=== PATIENT | female | born 1955 | race Caucasian/White ===

== ENCOUNTER 2019-10-16 08:55 | Emergency (ER) | payer MEDICARE ==
[2019-10-16] MEDS ORDERED: Sodium Chloride 0.9% 10 ML Syringe FLUSH PRN (09:24)
[2019-10-16] MEDS ORDERED: Ondansetron 4 MG/2 ML SDV IVPUSH ONE (09:26)
[2019-10-16] MEDS ORDERED: Sodium Chloride 0.9% 1,000 ML IV SCH (09:30)
--- NOTE | 2019-10-16 09:32 | EDM.PDOC ---
ED HPI GENERAL MEDICAL PROBLEM - General Chief Complaint: Syncope Stated Complaint: SYNCOPE/VOMITING Time Seen by Provider: 10/16/19 09:13 Source of Information: Reports: Patient History Limitations: Reports: No Limitations - History of Present Illness INITIAL COMMENTS - FREE TEXT/NARRATIVE: The patient presents with syncope. She passed out last night on the stairs. She then woke up vomiting. Nausea and vomiting have been an ongoing problems for her for a few months. She is scheduled to see a urologist and GI doctor in [place] in the next few weeks. She has never passed out like this. She has had a headache for the past week. It is better today. She has no fever, chills , cough, congestion, runny nose, chest pain or shortness of breath. She does have pain to her left upper back that happened after she fell. She has no numbness or weakness. She has no abdominal pain. She has some nausea now. She has a history of COPD but no heart problems in the past. Onset: Sudden Duration: Day(s): (Last night) Location: Reports: Back Quality: Reports: Sharp Severity: Moderate Improves with: Reports: Immobilization Worsens with: Reports: Movement Context: Reports: Trauma (Fall after syncope) Associated Symptoms: Reports: Nausea/Vomiting. Denies: Chest Pain, Cough, Fever /Chills, Headaches, Shortness of Breath Left Shoulder Pain Score (Numeric/FACES): 2 - Related Data Allergies Allergy/AdvReac Type Severity Reaction Status Date / Time amoxicillin Allergy Anaphylactic Verified 10/16/19 09:12 Shock codeine Allergy Abdominal Verified 10/16/19 09:12 Pain Home Meds: Home Meds Cetirizine [ZyrTEC] 1 tab PO DAILY 10/16/19 [History] Cholecalciferol (Vitamin D3) [Vitamin D] 1,000 unit DAILY 10/16/19 [History] Lactobacillus Combo No.11 [Probiotic] 1 cap PO DAILY 10/16/19 [History] Vitamin E 3 cap PO DAILY 10/16/19 [History] Wheat Dextrin [Benefiber] 1 packet PO DAILY 10/16/19 [History] polyethylene glycoL 3350 [MiraLAX] 1 packet PO DAILY PRN 10/16/19 [History] ED ROS GENERAL - Review of Systems Review Of Systems: See Below Constitutional: Reports: No Symptoms HEENT: Reports: No Symptoms Respiratory: Reports: No Symptoms Cardiovascular: Reports: Syncope. Denies: Chest Pain Endocrine: Reports: No Symptoms GI/Abdominal: Reports: No Symptoms Musculoskeletal: Reports: Back Pain - Physical Exam Exam: See Below Exam Limited By: No Limitations General Appearance: Alert, No Apparent Distress Ears: Normal External Exam Nose: Normal Inspection Head Exam: Atraumatic, Normocephalic Neck: Normal Inspection, Supple, Non-Tender Respiratory/Chest: No Respiratory Distress, Lungs Clear, Normal Breath Sounds Cardiovascular: Regular Rate, Rhythm, No Edema, No Murmur GI/Abdominal: Soft, Non-Tender, No Organomegaly, No Mass Neuro Exam (Abbreviated): Alert, Oriented, No Motor/Sensory Deficits Course - Vital Signs Last Recorded V/S: Last Vital Signs Temp 96.8 F 10/16/19 09:01 Pulse 86 10/16/19 09:01 Resp 18 10/16/19 09:01 BP 131/89 10/16/19 09:01 Pulse Ox 98 10/16/19 09:01 - Orders/Labs/Meds Orders: Active Orders 24 hr Category Date Time Status Cardiac Monitoring [RC] . DIRECTED Care 10/16/19 09:24 Active EKG Documentation Completion [RC] STAT Care 10/16/19 09:25 Active Holter Monitor 48 Hours [RC] .PRN Care 10/16/19 11:28 Ordered Influenza Vaccine Charge [RC] .DISCHARGE Care 10/16/19 09:29 Active Peripheral IV Care [RC] . DIRECTED Care 10/16/19 09:25 Active Sodium Chloride 0.9% [Normal Saline] 1,000 ml Med 10/16/19 09:30 Active IV .BOLUS Sodium Chloride 0.9% [Saline Flush] Med 10/16/19 09:24 Active 10 ml FLUSH ASDIRECTED PRN Peripheral IV Insertion Adult [OM.PC] Stat Oth 10/16/19 09:24 Ordered Medication Orders Sodium Chloride (Normal Saline) 1,000 mls @ 1,000 mls/hr IV .BOLUS NEFTALI Last Admin: 10/16/19 09:47 Dose: 1,000 mls/hr Sodium Chloride (Saline Flush) 10 ml FLUSH ASDIRECTED PRN PRN Reason: Keep Vein Open Last Admin: 10/16/19 09:48 Dose: 10 ml Labs: Laboratory Tests 10/16/19 10/16/19 10/16/19 Range/Units 09:45 09:45 09:45 WBC 11.43 H (3.98-10.04) K/mm3 RBC 4.68 (3.98-5.22) M/mm3 Hgb 14.1 (11.2-15.7) gm/dl Hct 42.8 (34.1-44.9) % MCV 91.5 (79.4-94.8) fl MCH 30.1 (25.6-32.2) pg MCHC 32.9 (32.2-35.5) g/dl RDW Std Deviation 44.1 (36.4-46.3) fL Plt Count 343 (182-369) K/mm3 MPV 9.5 (9.4-12.3) fl Neut % (Auto) 45.0 (34.0-71.1) % Lymph % (Auto) 42.2 (19.3-51.7) % [place] % (Auto) 9.0 (4.7-12.5) % Eos % (Auto) 3.1 (0.7-5.8) Baso % (Auto) 0.4 (0.1-1.2) % Neut # (Auto) 5.13 (1.56-6.13) K/mm3 Lymph # (Auto) 4.82 H (1.18-3.74) K/mm3 [place] # (Auto) 1.03 H (0.24-0.36) K/mm3 Eos # (Auto) 0.36 (0.04-0.36) K/mm3 Baso # (Auto) 0.05 (0.01-0.08) K/mm3 D-Dimer, Quantitative 0.21 (0.19-0.50) mg/L Sodium 142 (136-145) mEq/L Potassium 4.1 (3.5-5.1) mEq/L Chloride 105 (98-107) mEq/L Carbon Dioxide 26 (21-32) mEq/L Anion Gap 15.1 H (5-15) BUN 18 (7-18) mg/dL Creatinine 0.9 (0.55-1.02) mg/dL Est Cr Clr Drug Dosing 52.24 mL/min Estimated GFR (MDRD) > 60 (>60) mL/min BUN/Creatinine Ratio 20.0 H (14-18) Glucose 95 (80-115) mg/dL Calcium 9.6 (8.5-10.1) mg/dL Total Bilirubin 0.4 (0.2-1.0) mg/dL AST 14 L (15-37) U/L ALT 24 (14-59) U/L Alkaline Phosphatase 76 (46-116) U/L Troponin I < 0.017 (0.00-0.056) ng/mL Total Protein 7.3 (6.4-8.2) g/dl Albumin 3.9 (3.4-5.0) g/dl Globulin 3.4 gm/dL Albumin/Globulin Ratio 1.2 (1-2) Meds: Medications Generic Name Dose Route Start Last Admin Trade Name Freq PRN Reason Stop Dose Admin Sodium Chloride 1,000 mls @ 1,000 mls/hr 10/16/19 09:30 10/16/19 09:47 Normal Saline IV 1,000 mls/hr .BOLUS NEFTALI Administration Sodium Chloride 10 ml 10/16/19 09:24 10/16/19 09:48 Saline Flush FLUSH 10 ml ASDIRECTED PRN Administration Keep Vein Open Discontinued Medications Generic Name Dose Route Start Last Admin Trade Name Freq PRN Reason Stop Dose Admin Influenza Virus Vaccine 1 each 10/16/19 09:29 Pharmacy To Dose - Influenza Vaccine IM 10/16/19 09:30 ONETIME ONE Influenza Virus Vaccine 60 mcg 10/16/19 10:15 10/16/19 10:50 Fluzone Quad Syringe IM 10/16/19 10:16 60 mcg .ONCE ONE Administration Ondansetron HCl 4 mg 10/16/19 09:26 10/16/19 09:47 Zofran IVPUSH 10/16/19 09:27 4 mg ONETIME ONE Administration - Re-Assessments/Exams Free Text/Narrative Re-Assessment/Exam: 10/16/19 09:31 I ordered an IV NS 1L bolus, EKG, CT of her head, zofran 4mg IV and labs. 10/16/19 11:28 Her EKG shows a NSR with no acute changes. The CT of her head shows nothing acute. Her CXR shows possible emphysematous change. Her WBC was slightly elevated at 11.43. Her D-dimer is negative. Her CMP looks good. Her troponin is negative. She feels better. I will have her wear a holter monitor for 48 hours. I will have her follow up with Avril Cardoso. Departure - Departure Time of Disposition: 11:30 Disposition: Home, Self-Care 01 Condition: Good Clinical Impression: Syncope Qualifiers: Syncope type: unspecified Qualified Code(s): R55 - Syncope and collapse Nausea and vomiting Qualifiers: Vomiting type: unspecified Vomiting Intractability: non-intractable Qualified Code(s): R11.2 - Nausea with vomiting, unspecified - Discharge Information *PRESCRIPTION DRUG MONITORING PROGRAM REVIEWED*: Not Applicable *COPY OF PRESCRIPTION DRUG MONITORING REPORT IN PATIENT ROB: Not Applicable Referrals: Avril Cardoso MD [Primary Care Provider] - 1 Week Forms: ED Department Discharge Additional Instructions: Drink plenty of fluids. Wear the Holter monitor for 48 hours. Please return if you are worse and follow up with your provider within a week. Sepsis Event Note - Evaluation Sepsis Screening Result: No Definite Risk - Focused Exam Vital Signs: Vital Signs Temp Pulse Resp BP Pulse Ox 10/16/19 09:01 96.8 F 86 18 131/89 98 Date Exam was Performed: 10/16/19 Time Exam was Performed: 11:28 - My Orders Last 24 Hours: My Active Orders 10/16/19 09:24 Cardiac Monitoring [RC] . DIRECTED Sodium Chloride 0.9% [Saline Flush] 10 ml FLUSH ASDIRECTED PRN Peripheral IV Insertion Adult [OM.PC] Stat 10/16/19 09:25 EKG Documentation Completion [RC] STAT Peripheral IV Care [RC] . DIRECTED 10/16/19 09:29 Influenza Vaccine Charge [RC] .DISCHARGE 10/16/19 09:30 Sodium Chloride 0.9% [Normal Saline] 1,000 ml IV .BOLUS 10/16/19 11:28 Holter Monitor 48 Hours [RC] .PRN - Assessment/Plan Last 24 Hours: My Active Orders 10/16/19 09:24 Cardiac Monitoring [RC] . DIRECTED Sodium Chloride 0.9% [Saline Flush] 10 ml FLUSH ASDIRECTED PRN Peripheral IV Insertion Adult [OM.PC] Stat 10/16/19 09:25 EKG Documentation Completion [RC] STAT Peripheral IV Care [RC] . DIRECTED 10/16/19 09:29 Influenza Vaccine Charge [RC] .DISCHARGE 10/16/19 09:30 Sodium Chloride 0.9% [Normal Saline] 1,000 ml IV .BOLUS 10/16/19 11:28 Holter Monitor 48 Hours [RC] .PRN
[2019-10-16] MEDS ORDERED: FLU Vacc QS2019-20(6MOS+)/PF 60 MCG/0.5 ML SYRINGE IM ONE (10:15)
--- NOTE | 2019-10-16 10:33 | CT ---
Head CT Technique: Multiple axial sections through the brain were obtained. Intravenous contrast was not utilized. Comparison: No prior intracranial imaging. Findings: Ventricles along with basal cisterns and sulci over the convexities are mildly prominent. Minimal diminished density is noted within the periventricular white matter compatible with small vessel ischemic demyelination change. No other abnormal parenchymal densities are seen. No evidence of intracranial hemorrhage. No midline shift or mass effect is seen. Mild mucosal thickening is seen within the sphenoid and ethmoid sinuses. Mastoid sinuses are clear. No acute calvarial abnormality is seen. Impression: 1. Mild sinus findings which are most likely chronic. 2. Mild senescent change as noted above. 3. No acute intracranial abnormality is appreciated. Diagnostic code #2 Study was dictated in [place] Standard Time
--- NOTE | 2019-10-16 11:04 | CR ---
Chest: PA and lateral views of the chest were obtained. Comparison: No prior chest imaging. Heart size and mediastinum are normal. Lungs are clear but slightly hyperinflated. Bony structures appear within normal limits for the patient's age. Impression: 1. Possible emphysematous change. 2. Nothing acute is otherwise seen on two-view chest x-ray. Diagnostic code #1 Study was dictated in [place] Standard Time
== END 2019-10-16 11:44 | disposition home or self-care (01) ==
LOC: JD.ED 08:55
DX: R55 Syncope and collapse (principal); R11.2 Nausea with vomiting, unspecified; J44.9 Chronic obstructive pulmonary disease, unspecified; Z88.1 Allergy status to other antibiotic agents; Z88.5 Allergy status to narcotic agent
CPT/HCPCS: 36415; 70450; 71046; 80053; 84484; 85025; 85379; 90686; 93005; 93225; 93226; 96361; 96374; 99284; G0008; J2405; J7030; 93010

== ENCOUNTER 2020-05-06 08:00 | Inpatient (IN) | payer MEDICAID, MEDICARE, OTHER ==
[~2020-05-06 08:00] MED LIST: Lactated Ringers 1,000 ML IV SCH; Lidocaine 1%/Sod Bicarbonate in NS 8.4% 1 ML Syringe IDERM PRN; Sodium Chloride 0.9% 10 ML Syringe FLUSH PRN
[2020-05-06] MEDS ORDERED: Lidocaine 1% 4 ML ONE (09:22)
[2020-05-06] MEDS ORDERED: Propofol 200 MG/20 ML SDV ONE (09:23)
[2020-05-06] MEDS ORDERED: Succinylcholine/Sod PF 100 MG/5 ML SYRINGE IV ONE (09:23)
[2020-05-06] MEDS ORDERED: Midazolam 1 MG/ML 2 ML SDV ONE (09:23)
[2020-05-06] MEDS ORDERED: Rocuronium 50 MG/5 ML Vial ONE ×2 (09:27→14:43)
[2020-05-06] MEDS ORDERED: Ertapenem 1 GM in Sodium Chloride 0.9% 50 ML IV ONE (09:30)
[2020-05-06] MEDS ORDERED: Scopolamine 1.5 MG Transdermal Patch TOP ONE (09:30)
[2020-05-06] MEDS ORDERED: fentaNYL 250 MCG/5 ML SDV ONE (10:03)
[2020-05-06] MEDS ORDERED: Morphine PF 10 MG/10 ML SDV ONE (10:03)
[2020-05-06] MEDS ORDERED: Bupivacaine 0.5% 10 ML SDV ONE (10:08)
[2020-05-06] MEDS: Albuterol/Ipratropium 3.0-0.5 MG/3 ML Neb Soln NEB PRN ×2 (10:21→17:41)
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
[2020-05-06] MEDS ORDERED: ePHEDrine Sulfate/0.9% NaCl/Pf 25 MG/5 ML SYRINGE IV ONE (11:49)
[2020-05-06] MEDS ORDERED: Phenylephrine 1% 10 MG/ML SDV ONE (11:56)
[2020-05-06] MEDS: Bupivacaine 0.5%/EPINEPHrine 1:200,000 50 ML MDV ONE ×2 (12:02→16:45)
[2020-05-06] MEDS ORDERED: Ondansetron 4 MG/2 ML SDV ONE (12:28)
[2020-05-06] MEDS ORDERED: Lactated Ringers 1,000 ML ONE ×3 (12:29→16:23)
--- NOTE | 2020-05-06 12:31 | PCM.PRNOTE ---
- Free Text/Narrative Note: Preoperative Subarachnoid block for Postoperative pain control requested by the surgeon Pre-op Dx: Diverticulitis Post-op Rx: Laparoscopic left colectomy Requesting surgeon: Dr. Alejandrina Ferrara Patient has been interviewed preoperatively, risk/benefits/alternatives discussed, questions answered. Patient received explanation of possible headache exacerbations, worsening of parasthesia of lower extremities and possible backache and soreness, verbalized understanding and agreed to proceed. Vital signs and labs reviewed. Consent signed. IV fluid bolus given. Patient is in preop room, sitting on the bed, feet supported on the stool, positioning using pillow. Time out performed at 10:32. Mask, head cover, sterile gloves on. Betadine preparation x3 and sterile drape. Local infiltration with 1% Lidocaine at L3-L4 interspace. 1 x attempt with 25G Pencan needle. CSF obtained, no blood obtained. No parest hesia encountered. Injected 2.5 mls of 0.5% PF Bupivacaine with Fentanyl 15 mcg , Duramorph 150 mcg and 100 mcg of Epinephrine given in a single bolus. Patient tolerated the procedure very well. Start of procedure: 10:32 End of procedure: 10:40 Jairo Herrera CRNA
[2020-05-06] MEDS ORDERED: EPINEPHrine 1 MG/ML SDV ONE (13:35)
[2020-05-06] MEDS ORDERED: Methylene Blue 50 MG/10 ML Ampule ONE (14:05)
[2020-05-06] MEDS ORDERED: Sodium Chloride 0.9% 50 ML SDV ONE (14:05)
[2020-05-06] MEDS ORDERED: Furosemide 20 MG/2 ML VIAL ONE (14:23)
[2020-05-06] MEDS ORDERED: Dexamethasone 4 MG/ML 5 ML MDV ONE (15:01)
[2020-05-06] MEDS ORDERED: Ondansetron 4 MG/2 ML SDV IVPUSH PRN (15:13)
[2020-05-06] MEDS ORDERED: fentaNYL 100 MCG/2 ML SDV IVPUSH PRN (15:13)
[2020-05-06] MEDS ORDERED: diphenhydrAMINE 50 MG/ML SDV IVPUSH PRN (15:13)
[2020-05-06] MEDS ORDERED: HYDROmorphone 0.5 MG/0.5 ML Syringe ONE ×2 (17:14→17:34)
[2020-05-06] MEDS ORDERED: HYDROmorphone 0.5 MG/0.5 ML Syringe IVPUSH PRN (18:01)
[2020-05-06] MEDS ORDERED: Docusate Sodium 100 MG Cap PO PRN (18:01)
--- NOTE | 2020-05-06 18:02 | PCM.POSTAN ---
POST ANESTHESIA ASSESSMENT - MENTAL STATUS Mental Status: Confused - VITAL SIGNS Vital Signs: Last Vital Signs Temp 97.0 F 05/06/20 17:39 Pulse 83 05/06/20 09:00 Resp 14 05/06/20 17:39 BP 117/75 05/06/20 17:39 Pulse Ox 97 05/06/20 17:39 - RESPIRATORY Respiratory Status: Respiratory Rate WNL, Airway Patent, O2 Saturation Stable, Supplemental Oxygen - CARDIOVASCULAR CV Status: Pulse Rate WNL, Blood Pressure Stable - GASTROINTESTINAL GI Status: No Symptoms - PAIN Pain Score: 2 - POST OP HYDRATION Hydration Status: Adequate & Stable
--- NOTE | 2020-05-06 18:45 | OR ---
DATE OF OPERATION: 05/06/2020 SURGEON: Alejandrina Ferrara MD PREOPERATIVE DIAGNOSIS: Smoldering diverticulitis. POSTOPERATIVE DIAGNOSIS: Smoldering diverticulitis. OPERATION PERFORMED: Laparoscopic left colectomy, with splenic flexure takedown and intraoperative flexible sigmoidoscopy. ANESTHESIA: General endotracheal plus local anesthetic TAP block. ESTIMATED BLOOD LOSS: 50 mL. COMPLICATIONS: None immediate. Specimen: Left colon (part of descending and all the sigmoid colon) NEED FOR ASSISTANCE: Skilled assistance of Aurea Sands CNP, was needed in this case. The family readiness support assistant helped with patient positioning, holding the instruments especially the camera during the case as well as the retractors during the case, and closure. INDICATION AND CONSENT: Ms. Castellon is a 64-year-old female who has been suffering from recurrent episodes of diverticulitis, some of which are subclinical. She was just having some diarrhea, abdominal pain in the left lower quadrant with elevated white count, and she had abstained from eating multiple foods including meats and nuts for fear that if she eats any of that, she will provoke her left- sided abdominal pain. The patient came to see me and discussed her long- standing issue. I did offer the patient laparoscopic sigmoid left colectomy to see if that would ease her symptoms. We discussed the case with the patient in detail, risks, benefits, and alternatives. The patient wanted to proceed with the procedure and informed consent was obtained. DESCRIPTION OF PROCEDURE: The patient was taken to the operating room, placed in lithotomy position. The patient was appropriately padded. Preop antibiotics were given. Graff catheter was placed. A time-out was performed. Then, the perineum and the abdomen were prepped and draped in the usual sterile fashion. Then, we began the case by making an infraumbilical incision. Abdomen was accessed with a Veress needle. The abdomen was insufflated to 15 mmHg. Then, 2 additional trocars were placed, a 12 mm in the right lower quadrant and then the 5 mm in the right upper quadrant; both were in the right side of the abdomen. Then, the patient was placed in Trendelenburg and right sided down. The small bowel was removed from the pelvis. There were adhesions of the sigmoid colon to the lateral abdominal wall and anterior abdominal wall due to prior episode of diverticulitis. We began dissection in the medial to lateral fashion. A window was made in the appropriate place just caudal to the vascular pedicle and then dissection was carried bluntly. However, we were not able to identify the ureter during this dissection. Therefore, we stopped here and did a lateral to medial dissection. Adhesions to the abdominal wall were taken down with LigaSure Impact and then the colon was mobilized laterally by taking out the white line of Toldt all the way past the Gerota fascia. Once this was done, a significant effort was spent trying to identify the ureter, we were not able to identify. We injected 50mg of methylene blue to assist us in identification of the ureter. However, still we were not able to identify the ureter. There were many structures crossing past the pelvic brim. We traced the external iliac back to the bifurcation, but still were not able to identify the ureter with confidence. I did consult with Dr. Jonathan Copeland to the OR and in discussion with him, we agree that we should proceed with the resection and staying close to the colon and leaving the rest of the mesocolon down in hopes that this will avoid injuring the ureter. At this point then, I proceeded with taking down the splenic flexure because the diverticular disease was extensive, went up to the descending colon. Therefore, the lesser sac was entered. The gastrocolic ligament was taken down and the splenic flexure was taken down in the supra mesocolic fashion. The point where tenia coli splays out was identified. The upper mesorectum was dissected here. The upper rectum was isolated and transected using Ethicon Endo-EVENS stapler with a blue tissue load. Then, the descending and sigmoid mesocolon were taken down with LigaSure Impact, staying close to the colon and avoiding injuring any structures. There was no significant bleeding or there was no obvious injury to the ureter or urologic structures. At this time, we proceeded with extrusion of the bowel. The infraumbilical incision was extended and Reggie wound protector was placed and the left colon was extruded. The sigmoid colon was scarred due to recurrent diverticulitis and lower portion of the descending colon was also involved. Therefore, a resection was made to the area that felt normal by palpation and that did not have extensive diverticula. Then, a 29 mm Ethicon EEA stapler was brought into the field. Pursestring was placed at the end of the distal stump and an anvil was placed in there and tightened properly. This was dropped back into the abdomen and the abdomen was re-insufflated. Then, the EEA end of it was inserted into the upper rectum. However, even upon maneuvering it, could not get into the end despite extensive maneuvering with bending and trying to fit it around the upper rectum. Therefore, decision was made to resect a small segment of the upper rectum, about 3 cm so that the EEA stapler could get to the staple line. This was resected with another blue load of Endo-EVENS stapler. Then, at this point, we were able to get the EEA stapler to the staple line and an end-to-end colorectal anastomosis was performed. This anastomosis was tension free and it was tested with saline immersion test using flexible sigmoidoscopy. The colorectal anastomosis and flex sigmoidoscopy were performed, Dr. Jonathan Copeland was assisting me for this portion of the case. Once this was done, the anastomosis appeared to be well. The leak test was negative and there were no other complications. The resected segment of the upper rectum was placed in the EndoCatch bag and removed through the right lower quadrant 12 mm port site. Once this was done, any fluid was suctioned from the pelvis and we proceeded with performing transabdominal transverse plane blocks. This was performed using 0.5% bupivacaine that was injected around the abdomen in the transverse abdominis plane (TAP) under direct visualization with a laparoscope. Once we were done, the abdomen was again inspected and appeared to be normal. There was no stigmata of bleeding. The anastomosis appeared to be sitting well. At this point, the abdomen was desufflated, and trocars removed. The Reggie wound retractor was removed and a closure set was brought into the field. The fascia at the infraumbilical incision was closed with 0 PDS stitches in a running fashion and the 12 mm port in the right lower quadrant was closed at the fascial level with 0 Vicryl stitches using Michael-[place]ia device. Then, skin at all sites was reapproximated with julee and sterile dressings were placed. This marked the end of the procedure. At the end of the procedure, all instruments, sharps, and sponges were accounted for and found to be correct x2. As noted above, Dr. Jonathan Copeland assisted me with creation of colorectal anastomosis and performing a leak test. MMPARAS /[id number] ASTON
[2020-05-06] MEDS: Acetaminophen 325 MG Tab PO SCH ×2 (19:35→23:45)
[2020-05-06] MEDS: Formoterol/Mometasone 200-5 MCG 8.8 GM Inhaler IH SCH (20:24)
[2020-05-06] MEDS: Ondansetron 4 MG/2 ML SDV IVPUSH PRN (20:50)
[2020-05-06] MEDS: Fluticasone Propionate Nasal Spray 16 GM Bottle NASBOTH SCH (21:24)
[2020-05-06] MEDS: oxyCODONE 5 MG Tab PO PRN (21:33)
[2020-05-07] MEDS: Ondansetron 4 MG/2 ML SDV IVPUSH PRN (03:12)
[2020-05-07] MEDS: oxyCODONE 5 MG Tab PO PRN ×3 (03:32→15:09)
[2020-05-07] MEDS ORDERED: diphenhydrAMINE 25 MG Cap PO PRN (04:30)
[2020-05-07] MEDS: Albuterol 6.7 GM Inhaler INH PRN ×3 (04:33→20:27)
[2020-05-07] MEDS: Acetaminophen 325 MG Tab PO SCH ×3 (05:57→17:01)
[2020-05-07] MEDS: Pantoprazole 40 MG Tab.CR PO SCH (06:00)
[2020-05-07] MEDS: Formoterol/Mometasone 200-5 MCG 8.8 GM Inhaler IH SCH ×2 (08:07→20:26)
--- NOTE | 2020-05-07 08:13 | PCM.PRNOTE ---
- Free Text/Narrative Note: Chief Merchandising Officer's Operative Report Date:05/06/2020 Operation: laparoscopic sigmoid colectomy with colorectal anastomosis Indication: recurrent diverticulitis Surgeon: Alejandrina Ferrara MD Assisting: Jonathan Copeland MD (no other qualified occupational therapist assistants available due to complexity of case, including firing transanal EEA stapler for anastomosis) *Please see Dr. Ferrara's operative report for complete description of the operation. After completion of the colectomy and mobilization of the colon, I was asked to come to the OR to help with creating the stapled end to end anastomosis. The anvil had been placed in the proximal colonic segment. Under laparoscopic visualization, the stapler was passed through the anus up toward the proximal staple line. There was some redundancy and difficulty safely passing the stapler to the staple line, and so an additional 3 cm was resected using the laparoscopic linear cutting stapler from the distal portion to allow the spike of the stapler to pass through anteriorly at the transversely oriented staple line. The anvil and stapler were then mated and the stapler closed. Satisfied wi th orientation, the stapler was fired. The stapler was then opened partially to permit withdrawal. There was no resistance on withdrawal. Two intact circular specimens were retrieved from the stapler. Next, the anastomosis was tested by instilling sterile saline in the pelvis, submerging the staple line. A flexible endoscope was inserted through the anus up to the staple line, which was visualized. Air was insufflated, and no evidence of leak was noted; no bubbles emanated from beneath the fluid from the staple line. The scope was then withdrawn and my involvement in the case concluded. Jonathan Copeland MD General Surgery
[2020-05-07] MEDS ORDERED: Cholecalciferol (Vitamin D3) 5,000 UNIT Tab PO SCH (09:00)
[2020-05-07] MEDS: guaiFENesin 600 MG Tab.ER PO SCH (09:10)
[2020-05-07] MEDS: Diltiazem 120 MG Cap.CD PO SCH (09:10)
[2020-05-07] MEDS: hydrOXYzine HCl 25 MG Tab PO PRN (09:10)
[2020-05-07] MEDS: Rosuvastatin 10 MG Tab PO SCH (09:10)
[2020-05-07] MEDS: Cyanocobalamin (Vitamin B12) 1,000 MCG Tab PO SCH (09:11)
[2020-05-07] MEDS: Fluticasone Propionate Nasal Spray 16 GM Bottle NASBOTH SCH ×2 (09:12→20:34)
[2020-05-07] MEDS: Enoxaparin 40 MG/0.4 ML Syringe SUBCUT SCH (09:13)
[2020-05-07] MEDS ORDERED: Magnesium Sulfate/Water 4 GM in Premix Bag 1 BAG IV ONE (11:00)
[2020-05-07] MEDS: D5 1/2 NS w/ 20 mEq/L KCl 1,000 ML IV SCH (11:20)
--- NOTE | 2020-05-07 11:41 | PCM.PN ---
- General Info Date of Service: 05/07/20 Subjective Update: Patient has itching, nausea and vomited once overnight. Pain is controlled with medications. No fevers or chills. She ambulated this AM and sat on the chair Functional Status: Reports: Pain Controlled - Review of Systems General: Reports: No Symptoms HEENT: Reports: No Symptoms Pulmonary: Reports: No Symptoms Cardiovascular: Reports: No Symptoms Gastrointestinal: Reports: Abdominal Pain Genitourinary: Reports: No Symptoms Musculoskeletal: Reports: No Symptoms Skin: Reports: No Symptoms Neurological: Reports: No Symptoms - Patient Data Vitals - Most Recent: Last Vital Signs Temp 97.5 F 05/07/20 07:33 Pulse 89 05/07/20 09:10 Resp 16 05/07/20 10:00 BP 110/84 05/07/20 09:10 Pulse Ox 97 05/07/20 09:06 Weight - Most Recent: 82.418 kg I&O - Last 24 Hours: Intake & Output 05/06/20 05/07/20 05/07/20 22:59 06:59 14:59 Intake Total 400 1774 Output Total 1700 825 Balance -1300 949 Lab Results Last 24 Hours: Laboratory Results - last 24 hr 05/06/20 05/07/20 05/07/20 Range/Units 09:24 04:32 04:32 WBC 18.59 H (3.98-10.04) K/mm3 RBC 3.79 L (3.98-5.22) M/mm3 Hgb 11.3 D (11.2-15.7) gm/dl Hct 35.0 (34.1-44.9) % MCV 92.3 (79.4-94.8) fl MCH 29.8 (25.6-32.2) pg MCHC 32.3 (32.2-35.5) g/dl RDW Std Deviation 41.6 (36.4-46.3) fL Plt Count 306 (182-369) K/mm3 MPV 9.7 (9.4-12.3) fl Neut % (Auto) 86.2 H (34.0-71.1) % Lymph % (Auto) 7.0 L (19.3-51.7) % Chaves % (Auto) 6.5 (4.7-12.5) % Eos % (Auto) 0 L (0.7-5.8) Baso % (Auto) 0.1 (0.1-1.2) % Neut # (Auto) 16.02 H (1.56-6.13) K/mm3 Lymph # (Auto) 1.31 (1.18-3.74) K/mm3 Chaves # (Auto) 1.21 H (0.24-0.36) K/mm3 Eos # (Auto) 0.00 L (0.04-0.36) K/mm3 Baso # (Auto) 0.01 (0.01-0.08) K/mm3 Manual Slide Review Abnormal smear Sodium 137 (136-145) mEq/L Potassium 3.9 (3.5-5.1) mEq/L Chloride 100 (98-107) mEq/L Carbon Dioxide 24 (21-32) mEq/L Anion Gap 16.9 H (5-15) BUN 10 (7-18) mg/dL Creatinine 1.2 H (0.55-1.02) mg/dL Est Cr Clr Drug Dosing 39.18 mL/min Estimated GFR (MDRD) 45 (>60) mL/min BUN/Creatinine Ratio 8.3 L (14-18) Glucose 138 H (80-115) mg/dL Calcium 8.7 (8.5-10.1) mg/dL Phosphorus 2.6 (2.6-4.7) mg/dL Magnesium 1.3 L (1.8-2.4) mg/dl Blood Type A POSITIVE Gel Antibody Screen Negative Med Orders - Current: Current Medications Acetaminophen (Tylenol) 650 mg PO Q6H [facility] Last Admin: 05/07/20 11:20 Dose: 650 mg Documented by: Albuterol (Proventil Hfa) 2 gm INH Q4H PRN PRN Reason: Shortness of Breath Last Admin: 05/07/20 08:07 Dose: 2 puff Documented by: Cyanocobalamin (Vitamin B12) 4,000 mcg PO DAILY [facility] Last Admin: 05/07/20 09:11 Dose: 4,000 mcg Documented by: Diltiazem HCl (Cardizem Cd) 120 mg PO DAILY [facility] Last Admin: 05/07/20 09:10 Dose: 120 mg Documented by: Diphenhydramine HCl (Benadryl) 25 mg PO Q6H PRN PRN Reason: Itching Docusate Sodium (Colace) 100 mg PO BID PRN PRN Reason: Constipation Enoxaparin Sodium (Lovenox) 40 mg SUBCUT DAILY [facility] Last Admin: 05/07/20 09:13 Dose: 40 mg Documented by: Fluticasone Propionate (Flonase) 0 gm NASBOTH BID [facility] Last Admin: 05/07/20 09:12 Dose: 1 spray Documented by: Guaifenesin (Mucinex) 600 mg PO DAILY [facility] Last Admin: 05/07/20 09:10 Dose: 600 mg Documented by: Hydromorphone HCl (Dilaudid) 1 mg IVPUSH Q3H PRN PRN Reason: Pain (severe 7-10) Hydroxyzine HCl (Atarax) 25 mg PO Q12H PRN PRN Reason: ANXIETY Last Admin: 05/07/20 09:10 Dose: 25 mg Documented by: Magnesium Sulfate 4 gm/ Premix 50 mls @ 12.5 mls/hr IV ONETIME ONE Stop: 05/07/20 14:59 Last Admin: 05/07/20 11:20 Dose: 12.5 mls/hr Documented by: Potassium Chloride/Dextrose/Sod Cl (D5 1/2 Ns W/ 20 Meq/L Kcl) 1,000 mls @ 75 mls/hr IV ASDIRECTED [facility] Last Admin: 05/07/20 11:20 Dose: 75 mls/hr Documented by: Mometasone Furoate/Formoterol Fumar (Dulera 200-5 Mcg) 2 puff IH BID [facility] Last Admin: 05/07/20 08:07 Dose: 2 puff Documented by: Ondansetron HCl (Zofran) 4 mg IVPUSH Q6H PRN PRN Reason: Nausea/Vomiting Last Admin: 05/07/20 03:12 Dose: 4 mg Documented by: Oxycodone HCl (Oxycodone) 5 mg PO Q6H PRN PRN Reason: Abdominal Pain Last Admin: 05/07/20 09:11 Dose: 5 mg Documented by: Pantoprazole Sodium (Protonix) 40 mg PO DAILY@0700 [facility] Last Admin: 05/07/20 06:00 Dose: 40 mg Documented by: Rosuvastatin Calcium (Crestor) 20 mg PO DAILY [facility] Last Admin: 05/07/20 09:10 Dose: 20 mg Documented by: Discontinued Medications Albuterol/Ipratropium (Duoneb 3.0-0.5 Mg/3 Ml) 3 ml NEB Q4HRRT PRN PRN Reason: Shortness of Breath Stop: 05/06/20 18:00 Last Admin: 05/06/20 17:41 Dose: 3 ml Documented by: Bupivacaine HCl (Sensorcaine-Mpf 0.5%) Confirm Administered Dose 10 ml .ROUTE .STK-MED ONE Stop: 05/06/20 10:09 Last Admin: 05/06/20 16:45 Dose: 7 ml Documented by: Bupivacaine HCl/Epinephrine Bitart (Marcaine 0.5%/Epinephrine 1:200,000) Confirm Administered Dose 50 ml .ROUTE .STK-MED ONE Stop: 05/06/20 09:07 Last Admin: 05/06/20 16:45 Dose: 50 ml Documented by: Cholecalciferol (Vitamin D3) 3,000 unit PO DAILY NEFTALI Dexamethasone (Dexamethasone) Confirm Administered Dose 20 mg .ROUTE .STK-MED ONE Stop: 05/06/20 15:02 Diphenhydramine HCl (Benadryl) 25 mg IVPUSH Q6H PRN PRN Reason: Pruritis Stop: 05/06/20 18:00 Last Admin: 05/06/20 18:02 Dose: 25 mg Documented by: Ephedrine Sulfate (Ephedrine 25 Mg/5 Ml Syringe) Confirm Administered Dose 25 mg IV .STK-MED ONE Stop: 05/06/20 11:50 Epinephrine HCl (Adrenalin) Confirm Administered Dose 1 mg .ROUTE .STK-MED ONE Stop: 05/06/20 13:36 Fentanyl (Sublimaze) Confirm Administered Dose 250 mcg .ROUTE .STK-MED ONE Stop: 05/06/20 10:04 Fentanyl (Sublimaze) 100 mcg IVPUSH Q5M PRN PRN Reason: Pain Stop: 05/06/20 18:00 Furosemide (Lasix) Confirm Administered Dose 20 mg .ROUTE .STK-MED ONE Stop: 05/06/20 14:24 Glycopyrrolate () Confirm Administered Dose 1 mg .ROUTE .STK-MED ONE Stop: 05/06/20 17:23 Hydromorphone HCl (Dilaudid) Confirm Administered Dose 0.5 mg .ROUTE .STK-MED ONE Stop: 05/06/20 17:15 Hydromorphone HCl (Dilaudid) Confirm Administered Dose 0.5 mg .ROUTE .STK-MED ONE Stop: 05/06/20 17:35 Hydromorphone HCl (Dilaudid) 1 mg IVPUSH Q3H PRN PRN Reason: Pain (severe 7-10) Lactated Ringer's (Ringers, Lactated) 1,000 mls @ 125 mls/hr IV ASDIRECTED NEFTALI Stop: 05/06/20 23:00 Last Admin: 05/06/20 09:30 Dose: 125 mls/hr Documented by: Ertapenem 1 gm/ Sodium (Chloride) 50 mls @ 100 mls/hr IV ONETIME ONE Stop: 05/06/20 09:59 Last Admin: 05/06/20 19:35 Dose: Not Given Documented by: Lidocaine HCl (Xylocaine-Mpf 1%) Confirm Administered Dose 4 mls @ as directed .ROUTE .STK-MED ONE Stop: 05/06/20 09:23 Lactated Ringer's (Ringers, Lactated) Confirm Administered Dose 1,000 mls @ as directed .ROUTE .STK-MED ONE Stop: 05/06/20 12:30 Lactated Ringer's (Ringers, Lactated) Confirm Administered Dose 1,000 mls @ as directed .ROUTE .STK-MED ONE Stop: 05/06/20 12:30 Dextrose/Water (Dextrose 5% In Water) Confirm Administered Dose 0 mls @ as directed .ROUTE .STK-MED ONE Stop: 05/06/20 14:08 Lactated Ringer's (Ringers, Lactated) Confirm Administered Dose 1,000 mls @ as directed .ROUTE .STK-MED ONE Stop: 05/06/20 16:24 Lidocaine/Sodium Bicarbonate (Buffered Lidocaine 1% In Ns 8.4%) 0.25 ml IDERM ONETIME PRN PRN Reason: Prior to IV Start Stop: 05/06/20 18:00 Last Admin: 05/06/20 09:29 Dose: 0.25 ml Documented by: Methylene Blue (Provayblue) Confirm Administered Dose 50 mg .ROUTE .STK-MED ONE Stop: 05/06/20 14:06 Last Admin: 05/06/20 14:11 Dose: 50 mg Documented by: Midazolam HCl (Versed 1 Mg/Ml) Confirm Administered Dose 2 mg .ROUTE .STK-MED ONE Stop: 05/06/20 09:24 Miscellaneous Medication (Phenylephrine 1 Mg/10 Ml-Ns) Confirm Administered Dose 1 mg IV .STK-MED ONE Stop: 05/06/20 10:56 Morphine Sulfate (Duramorph Pf) Confirm Administered Dose 10 mg .ROUTE .STK-MED ONE Stop: 05/06/20 10:04 Neostigmine Methylsulfate (Neostigmine Methylsulfate) Confirm Administered Dose 5 mg .ROUTE .STK-MED ONE Stop: 05/06/20 17:23 Ondansetron HCl (Zofran) Confirm Administered Dose 8 mg .ROUTE .STK-MED ONE Stop: 05/06/20 12:29 Ondansetron HCl (Zofran) 4 mg IVPUSH ONETIME PRN PRN Reason: Nausea/Vomiting Stop: 05/06/20 18:00 Phenylephrine HCl (Ryan-Synephrine) Confirm Administered Dose 10 mg .ROUTE .STK- MED ONE Stop: 05/06/20 11:57 Propofol (Diprivan 20 Ml) Confirm Administered Dose 200 mg .ROUTE .STK-MED ONE Stop: 05/06/20 09:24 Rocuronium [place] (Zemuron) Confirm Administered Dose 50 mg .ROUTE .STK-MED ONE Stop: 05/06/20 09:28 Rocuronium [place] (Zemuron) Confirm Administered Dose 50 mg .ROUTE .STK-MED ONE Stop: 05/06/20 14:44 Scopolamine (Transderm-Scop) 1.5 mg TOP ONETIME ONE Stop: 05/06/20 09:31 Last Admin: 05/06/20 09:13 Dose: 1.5 mg Documented by: Sodium Chloride (Saline Flush) 10 ml FLUSH ASDIRECTED PRN PRN Reason: Keep Vein Open Stop: 05/06/20 18:00 Sodium Chloride (Normal Saline) Confirm Administered Dose 0 ml .ROUTE .STK-MED ONE Stop: 05/06/20 14:06 - Exam Quality Assessment: Supplemental Oxygen General: Alert, Oriented, Cooperative GI/Abdominal Exam: Soft, No Abnormal Bruit, No Mass, Distended (moderately), Tender (around the incisions) Wound/Incisions: Other (dressings in lace with mild shaddowing with serosanguinous fluid.) Sepsis Event Note - Evaluation Sepsis Screening Result: No Definite Risk - Focused Exam Vital Signs: Vital Signs Temp Pulse Resp BP Pulse Ox Pulse Ox 05/07/20 10:00 16 05/07/20 09:10 89 110/84 05/07/20 09:06 89 97 05/07/20 09:04 110/84 05/07/20 09:00 20 05/07/20 08:07 97 05/07/20 08:00 20 05/07/20 07:33 97.5 F 67 20 90/57 L 98 05/07/20 07:00 16 05/07/20 06:00 18 05/07/20 05:00 16 05/07/20 04:36 95 05/07/20 04:00 12 05/07/20 03:42 97.9 F 66 12 115/75 98 05/07/20 03:00 14 05/07/20 02:00 14 05/07/20 01:00 16 05/07/20 00:00 16 05/06/20 23:37 97.3 F 88 16 113/64 100 - Problem List Review Problem List Initiated/Reviewed/Updated: No - My Orders Last 24 Hours: My Active Orders 05/06/20 Dinner Clear Liquid Diet [DIET] 05/06/20 17:38 Resuscitation Status Routine 05/06/20 18:01 Acetaminophen [TylenoL] 650 mg PO Q6H Docusate Sodium [Colace] 100 mg PO BID PRN Ondansetron [Zofran] 4 mg IVPUSH Q6H PRN oxyCODONE 5 mg PO Q6H PRN 05/06/20 18:01 Patient Status [ADT] Routine Ambulate [RC] .TID Antiembolic Devices [RC] BID Cardiac Monitoring [RC] . DIRECTED Oxygen Therapy [RC] PRN RT Incentive Spirometry [RC] Q1HWA Up ad Priscila [RC] BID Up to Chair [RC] Q4HPRN Urinary Catheter Assessment [RC] 04,10,16,22 Urinary Catheter Removal [RC] DAILY VTE/DVT Education [RC] , Vital Signs [RC] Q1HR Abdominal Binder [OM.PC] Per Unit Routine DVT/VTE Prophylaxis Reflex [OM.PC] Routine 05/06/20 19:10 hydrOXYzine HCL [Atarax] 25 mg PO Q12H PRN 05/06/20 19:15 Albuterol [Proventil HFA] 2 gm INH Q4H PRN 05/06/20 21:00 Fluticasone Propionate [Flonase] 0 gm NASBOTH BID Mometasone/Formoterol [Dulera 200-5 MCG] 2 puff IH BID 05/07/20 04:30 diphenhydrAMINE [Benadryl] 25 mg PO Q6H PRN 05/07/20 07:00 Pantoprazole [ProTONIX] 40 mg PO DAILY@0700 05/07/20 08:09 HYDROmorphone [Dilaudid] 1 mg IVPUSH Q3H PRN 05/07/20 09:00 Cyanocobalamin (Vitamin B12) [Vitamin B12] 4,000 mcg PO DAILY Diltiazem [Cardizem CD] 120 mg PO DAILY Enoxaparin [Lovenox] 40 mg SUBCUT DAILY Rosuvastatin [Crestor] 20 mg PO DAILY guaiFENesin [Mucinex] 600 mg PO DAILY 05/07/20 10:45 D5 1/2 NS w/ 20 mEq/L KCl 1,000 ml IV ASDIRECTED 05/07/20 11:00 Magnesium Sulfate/Water [Magnesium Sulfate in Water Premix] 4 gm Premix Bag 1 bag IV ONETIME 05/08/20 05:11 BASIC METABOLIC PANEL,BMP [CHEM] AM CBC WITH AUTO DIFF [HEME] AM MAGNESIUM [CHEM] AM PHOSPHORUS [CHEM] AM 05/09/20 05:11 BASIC METABOLIC PANEL,BMP [CHEM] AM CBC WITH AUTO DIFF [HEME] AM MAGNESIUM [CHEM] AM PHOSPHORUS [CHEM] AM - Assessment Assessment:: POD 1/ s/p lap left colectomy for diverticulitis. - Plan Plan:: - Dc mittal - IVF with d5.45NS with 20mEq K at 75cc/hr - Repleted Mag - Continue CLD since pt has some nausea - hydroxyzine for itching - Continue to encourage ambulation, IS We will continue to monitor progress.
--- NOTE | 2020-05-07 13:37 | PCM48HPAN ---
Post Anesthesia Note - EVALUATION WITHIN 48HRS OF ANESTHETIC Vital Signs in Normal Range: Yes Patient Participated in Evaluation: Yes Respiratory Function Stable: Yes (still on O2 NC / continuous SpO2) Airway Patent: Yes Cardiovascular Function Stable: Yes Hydration Status Stable: Yes Pain Control Satisfactory: Yes Nausea and Vomiting Control Satisfactory: Yes Mental Status Recovered: Yes Vital Signs: Last Vital Signs Temp 97.5 F 05/07/20 11:26 Pulse 70 05/07/20 11:26 Resp 20 05/07/20 11:26 BP 102/69 05/07/20 11:26 Pulse Ox 96 05/07/20 11:26 - COMMENTS/OBSERVATIONS Free Text/Narrative:: Patient is on her postoperative day 1. No anesthesia complications noted, patient hasn't been out of bed yet, but denies any back pain, headache, numbness or tingling in lower extremities. Graff catheter hasn't been discontinued yet. Patient reports pain as tolerable.
[2020-05-07] MEDS: HYDROmorphone 1 MG/ML Syringe IVPUSH PRN (20:33)
[2020-05-08] MEDS: Acetaminophen 325 MG Tab PO SCH ×5 (00:29→23:31)
[2020-05-08] MEDS: HYDROmorphone 1 MG/ML Syringe IVPUSH PRN ×2 (00:30→21:56)
[2020-05-08] MEDS: D5 1/2 NS w/ 20 mEq/L KCl 1,000 ML IV SCH ×2 (00:30→13:57)
[2020-05-08] MEDS: Pantoprazole 40 MG Tab.CR PO SCH (06:16)
[2020-05-08] MEDS: Albuterol 6.7 GM Inhaler INH PRN ×2 (08:00→21:28)
[2020-05-08] MEDS: Formoterol/Mometasone 200-5 MCG 8.8 GM Inhaler IH SCH ×2 (08:00→20:21)
[2020-05-08] MEDS: Enoxaparin 40 MG/0.4 ML Syringe SUBCUT SCH (09:53)
[2020-05-08] MEDS: Ondansetron 4 MG/2 ML SDV IVPUSH PRN ×2 (09:53→18:02)
[2020-05-08] MEDS: Diltiazem 120 MG Cap.CD PO SCH (09:54)
[2020-05-08] MEDS: hydrOXYzine HCl 25 MG Tab PO PRN ×2 (09:56→21:21)
[2020-05-08] MEDS: Rosuvastatin 10 MG Tab PO SCH (09:56)
[2020-05-08] MEDS: Cyanocobalamin (Vitamin B12) 1,000 MCG Tab PO SCH (09:56)
[2020-05-08] MEDS: oxyCODONE 5 MG Tab PO PRN (09:57)
[2020-05-08] MEDS: guaiFENesin 600 MG Tab.ER PO SCH (09:57)
[2020-05-08] MEDS: Fluticasone Propionate Nasal Spray 16 GM Bottle NASBOTH SCH ×2 (10:19→21:25)
--- NOTE | 2020-05-08 13:29 | PCM.PN ---
- General Info Date of Service: 05/08/20 Subjective Update: Patient denies nausea or vomiting. TOlerating clears, ambulated 5 times yesterday. Abdominal pain is controlled. No fevers. urinating spontaneously. Functional Status: Reports: Pain Controlled, Tolerating Diet, Ambulating, Urinating - Review of Systems General: Reports: No Symptoms HEENT: Reports: No Symptoms Pulmonary: Reports: No Symptoms Cardiovascular: Reports: No Symptoms Gastrointestinal: Reports: Abdominal Pain Genitourinary: Reports: No Symptoms Musculoskeletal: Reports: No Symptoms Skin: Reports: No Symptoms Neurological: Reports: No Symptoms - Patient Data Vitals - Most Recent: Last Vital Signs Temp 97.9 F 05/08/20 08:01 Pulse 86 05/08/20 09:54 Resp 20 05/08/20 08:01 BP 120/67 05/08/20 09:54 Pulse Ox 94 L 05/08/20 08:01 Weight - Most Recent: 82.962 kg I&O - Last 24 Hours: Intake & Output 05/07/20 05/08/20 05/08/20 22:59 06:59 14:59 Intake Total 2450 1300 860 Output Total 1750 1200 250 Balance 700 100 610 Lab Results Last 24 Hours: Laboratory Results - last 24 hr 05/08/20 05/08/20 Range/Units 04:22 04:22 WBC 26.85 H (3.98-10.04) K/mm3 RBC 3.51 L (3.98-5.22) M/mm3 Hgb 10.4 L (11.2-15.7) gm/dl Hct 32.6 L (34.1-44.9) % MCV 92.9 (79.4-94.8) fl MCH 29.6 (25.6-32.2) pg MCHC 31.9 L (32.2-35.5) g/dl RDW Std Deviation 42.0 (36.4-46.3) fL Plt Count 295 (182-369) K/mm3 MPV 9.6 (9.4-12.3) fl Neut % (Auto) 82.4 H (34.0-71.1) % Lymph % (Auto) 8.4 L (19.3-51.7) % Alfalfa % (Auto) 8.9 (4.7-12.5) % Eos % (Auto) 0 L (0.7-5.8) Baso % (Auto) 0.0 L (0.1-1.2) % Neut # (Auto) 22.12 H (1.56-6.13) K/mm3 Lymph # (Auto) 2.25 (1.18-3.74) K/mm3 Alfalfa # (Auto) 2.40 H (0.24-0.36) K/mm3 Eos # (Auto) 0.00 L (0.04-0.36) K/mm3 Baso # (Auto) 0.01 (0.01-0.08) K/mm3 Manual Slide Review Abnormal smear Sodium 137 (136-145) mEq/L Potassium 4.4 (3.5-5.1) mEq/L Chloride 101 (98-107) mEq/L Carbon Dioxide 26 (21-32) mEq/L Anion Gap 14.4 (5-15) BUN 11 (7-18) mg/dL Creatinine 0.9 (0.55-1.02) mg/dL Est Cr Clr Drug Dosing 52.24 mL/min Estimated GFR (MDRD) > 60 (>60) mL/min BUN/Creatinine Ratio 12.2 L (14-18) Glucose 123 H (80-115) mg/dL Calcium 8.7 (8.5-10.1) mg/dL Phosphorus 3.1 (2.6-4.7) mg/dL Magnesium 2.1 (1.8-2.4) mg/dl Med Orders - Current: Current Medications Acetaminophen (Tylenol) 650 mg PO Q6H [facility] Last Admin: 05/08/20 12:09 Dose: 650 mg Documented by: Albuterol (Proventil Hfa) 2 gm INH Q4H PRN PRN Reason: Shortness of Breath Last Admin: 05/08/20 08:00 Dose: 2 puff Documented by: Cyanocobalamin (Vitamin B12) 4,000 mcg PO DAILY [facility] Last Admin: 05/08/20 09:56 Dose: 4,000 mcg Documented by: Diltiazem HCl (Cardizem Cd) 120 mg PO DAILY [facility] Last Admin: 05/08/20 09:54 Dose: 120 mg Documented by: Diphenhydramine HCl (Benadryl) 25 mg PO Q6H PRN PRN Reason: Itching Docusate Sodium (Colace) 100 mg PO BID PRN PRN Reason: Constipation Enoxaparin Sodium (Lovenox) 40 mg SUBCUT DAILY [facility] Last Admin: 05/08/20 09:53 Dose: 40 mg Documented by: Fluticasone Propionate (Flonase) 0 gm NASBOTH BID [facility] Last Admin: 05/08/20 10:19 Dose: 1 spray Documented by: Guaifenesin (Mucinex) 600 mg PO DAILY [facility] Last Admin: 05/08/20 09:57 Dose: 600 mg Documented by: Hydromorphone HCl (Dilaudid) 1 mg IVPUSH Q3H PRN PRN Reason: Pain (severe 7-10) Last Admin: 05/08/20 00:30 Dose: 1 mg Documented by: Hydroxyzine HCl (Atarax) 25 mg PO Q12H PRN PRN Reason: ANXIETY Last Admin: 05/08/20 09:56 Dose: 25 mg Documented by: Potassium Chloride/Dextrose/Sod Cl (D5 1/2 Ns W/ 20 Meq/L Kcl) 1,000 mls @ 50 mls/hr IV ASDIRECTED [facility] Last Admin: 05/08/20 00:30 Dose: 75 mls/hr Documented by: Mometasone Furoate/Formoterol Fumar (Dulera 200-5 Mcg) 2 puff IH BID [facility] Last Admin: 05/08/20 08:00 Dose: 2 puff Documented by: Ondansetron HCl (Zofran) 4 mg IVPUSH Q6H PRN PRN Reason: Nausea/Vomiting Last Admin: 05/08/20 09:53 Dose: 4 mg Documented by: Oxycodone HCl (Oxycodone) 5 mg PO Q6H PRN PRN Reason: Abdominal Pain Last Admin: 05/08/20 09:57 Dose: 5 mg Documented by: Pantoprazole Sodium (Protonix) 40 mg PO DAILY@0700 [facility] Last Admin: 05/08/20 06:16 Dose: 40 mg Documented by: Rosuvastatin Calcium (Crestor) 20 mg PO DAILY [facility] Last Admin: 05/08/20 09:56 Dose: 20 mg Documented by: Discontinued Medications Albuterol/Ipratropium (Duoneb 3.0-0.5 Mg/3 Ml) 3 ml NEB Q4HRRT PRN PRN Reason: Shortness of Breath Stop: 05/06/20 18:00 Last Admin: 05/06/20 17:41 Dose: 3 ml Documented by: Bupivacaine HCl (Sensorcaine-Mpf 0.5%) Confirm Administered Dose 10 ml .ROUTE .STK-MED ONE Stop: 05/06/20 10:09 Last Admin: 05/06/20 16:45 Dose: 7 ml Documented by: Bupivacaine HCl/Epinephrine Bitart (Marcaine 0.5%/Epinephrine 1:200,000) Confirm Administered Dose 50 ml .ROUTE .STK-MED ONE Stop: 05/06/20 09:07 Last Admin: 05/06/20 16:45 Dose: 50 ml Documented by: Cholecalciferol (Vitamin D3) 3,000 unit PO DAILY [facility] Dexamethasone (Dexamethasone) Confirm Administered Dose 20 mg .ROUTE .STK-MED ONE Stop: 05/06/20 15:02 Diphenhydramine HCl (Benadryl) 25 mg IVPUSH Q6H PRN PRN Reason: Pruritis Stop: 05/06/20 18:00 Last Admin: 05/06/20 18:02 Dose: 25 mg Documented by: Ephedrine Sulfate (Ephedrine 25 Mg/5 Ml Syringe) Confirm Administered Dose 25 mg IV .STK-MED ONE Stop: 05/06/20 11:50 Epinephrine HCl (Adrenalin) Confirm Administered Dose 1 mg .ROUTE .STK-MED ONE Stop: 05/06/20 13:36 Fentanyl (Sublimaze) Confirm Administered Dose 250 mcg .ROUTE .STK-MED ONE Stop: 05/06/20 10:04 Fentanyl (Sublimaze) 100 mcg IVPUSH Q5M PRN PRN Reason: Pain Stop: 05/06/20 18:00 Furosemide (Lasix) Confirm Administered Dose 20 mg .ROUTE .STK-MED ONE Stop: 05/06/20 14:24 Glycopyrrolate () Confirm Administered Dose 1 mg .ROUTE .STK-MED ONE Stop: 05/06/20 17:23 Hydromorphone HCl (Dilaudid) Confirm Administered Dose 0.5 mg .ROUTE .STK-MED ONE Stop: 05/06/20 17:15 Hydromorphone HCl (Dilaudid) Confirm Administered Dose 0.5 mg .ROUTE .STK-MED ONE Stop: 05/06/20 17:35 Hydromorphone HCl (Dilaudid) 1 mg IVPUSH Q3H PRN PRN Reason: Pain (severe 7-10) Lactated Ringer's (Ringers, Lactated) 1,000 mls @ 125 mls/hr IV ASDIRECTED [facility] Stop: 05/06/20 23:00 Last Admin: 05/06/20 09:30 Dose: 125 mls/hr Documented by: Ertapenem 1 gm/ Sodium (Chloride) 50 mls @ 100 mls/hr IV ONETIME ONE Stop: 05/06/20 09:59 Last Admin: 05/06/20 19:35 Dose: Not Given Documented by: Lidocaine HCl (Xylocaine-Mpf 1%) Confirm Administered Dose 4 mls @ as directed .ROUTE .STK-MED ONE Stop: 05/06/20 09:23 Lactated Ringer's (Ringers, Lactated) Confirm Administered Dose 1,000 mls @ as directed .ROUTE .STK-MED ONE Stop: 05/06/20 12:30 Lactated Ringer's (Ringers, Lactated) Confirm Administered Dose 1,000 mls @ as directed .ROUTE .STK-MED ONE Stop: 05/06/20 12:30 Dextrose/Water (Dextrose 5% In Water) Confirm Administered Dose 0 mls @ as directed .ROUTE .STK-MED ONE Stop: 05/06/20 14:08 Lactated Ringer's (Ringers, Lactated) Confirm Administered Dose 1,000 mls @ as directed .ROUTE .STK-MED ONE Stop: 05/06/20 16:24 Magnesium Sulfate 4 gm/ Premix 50 mls @ 12.5 mls/hr IV ONETIME ONE Stop: 05/07/20 14:59 Last Admin: 05/07/20 11:20 Dose: 12.5 mls/hr Documented by: Lidocaine/Sodium Bicarbonate (Buffered Lidocaine 1% In Ns 8.4%) 0.25 ml IDERM ONETIME PRN PRN Reason: Prior to IV Start Stop: 05/06/20 18:00 Last Admin: 05/06/20 09:29 Dose: 0.25 ml Documented by: Methylene Blue (Provayblue) Confirm Administered Dose 50 mg .ROUTE .STK-MED ONE Stop: 05/06/20 14:06 Last Admin: 05/06/20 14:11 Dose: 50 mg Documented by: Midazolam HCl (Versed 1 Mg/Ml) Confirm Administered Dose 2 mg .ROUTE .STK-MED ONE Stop: 05/06/20 09:24 Miscellaneous Medication (Phenylephrine 1 Mg/10 Ml-Ns) Confirm Administered Dose 1 mg IV .STK-MED ONE Stop: 05/06/20 10:56 Morphine Sulfate (Duramorph Pf) Confirm Administered Dose 10 mg .ROUTE .STK-MED ONE Stop: 05/06/20 10:04 Neostigmine Methylsulfate (Neostigmine Methylsulfate) Confirm Administered Dose 5 mg .ROUTE .STK-MED ONE Stop: 05/06/20 17:23 Ondansetron HCl (Zofran) Confirm Administered Dose 8 mg .ROUTE .STK-MED ONE Stop: 05/06/20 12:29 Ondansetron HCl (Zofran) 4 mg IVPUSH ONETIME PRN PRN Reason: Nausea/Vomiting Stop: 05/06/20 18:00 Phenylephrine HCl (Ryan-Synephrine) Confirm Administered Dose 10 mg .ROUTE .STK- MED ONE Stop: 05/06/20 11:57 Propofol (Diprivan 20 Ml) Confirm Administered Dose 200 mg .ROUTE .STK-MED ONE Stop: 05/06/20 09:24 Rocuronium [employer] (Zemuron) Confirm Administered Dose 50 mg .ROUTE .STK-MED ONE Stop: 05/06/20 09:28 Rocuronium [employer] (Zemuron) Confirm Administered Dose 50 mg .ROUTE .ST-MED ONE Stop: 05/06/20 14:44 Scopolamine (Transderm-Scop) 1.5 mg TOP ONETIME ONE Stop: 05/06/20 09:31 Last Admin: 05/06/20 09:13 Dose: 1.5 mg Documented by: Sodium Chloride (Saline Flush) 10 ml FLUSH ASDIRECTED PRN PRN Reason: Keep Vein Open Stop: 05/06/20 18:00 Sodium Chloride (Normal Saline) Confirm Administered Dose 0 ml .ROUTE .STK-MED ONE Stop: 05/06/20 14:06 - Exam General: Alert, Oriented, Cooperative Lungs: Normal Respiratory Effort Cardiovascular: Regular Rate, Regular Rhythm GI/Abdominal Exam: Soft, No Organomegaly, Distended (slightly), Tender (around incisions) Sepsis Event Note - Evaluation Sepsis Screening Result: No Definite Risk - Focused Exam Vital Signs: Vital Signs Temp Pulse Resp BP Pulse Ox Pulse Ox 05/08/20 09:54 86 120/67 05/08/20 08:01 97.9 F 61 20 99/67 94 L 05/08/20 08:00 94 L 05/08/20 03:45 98.2 F 81 16 101/47 L 92 L - Problem List Review Problem List Initiated/Reviewed/Updated: No - My Orders Last 24 Hours: My Active Orders 05/09/20 05:11 BASIC METABOLIC PANEL,BMP [CHEM] AM CBC WITH AUTO DIFF [HEME] AM MAGNESIUM [CHEM] AM PHOSPHORUS [CHEM] AM - Assessment Assessment:: POD 2 s/p lap left colectomy for diverticulitis. - Plan Plan:: - IVF with d5.45NS with 20mEq K at 50cc/hr - Continue CLD since pt has no bowel function and WBC is up - hydroxyzine for itching - Continue to encourage ambulation, IS - CBC daily We will continue to monitor progress.
[2020-05-09] MEDS: D5 1/2 NS w/ 20 mEq/L KCl 1,000 ML IV SCH (03:45)
[2020-05-09] MEDS: Acetaminophen 325 MG Tab PO SCH ×3 (05:59→19:05)
[2020-05-09] MEDS: Albuterol 6.7 GM Inhaler INH PRN (07:26)
[2020-05-09] MEDS: Formoterol/Mometasone 200-5 MCG 8.8 GM Inhaler IH SCH ×3 (07:27→20:16)
--- NOTE | 2020-05-09 08:16 | PCM.PN ---
- General Info Date of Service: 05/09/20 Subjective Update: Patient is tolerating clears, passed flatus, feels tired today but no fevers or chills. Vitals stable Functional Status: Reports: Pain Controlled, Tolerating Diet (clears), Ambulating, Urinating Pain Score: 3 - Review of Systems General: Reports: Fatigue HEENT: Reports: No Symptoms Pulmonary: Reports: No Symptoms Cardiovascular: Reports: No Symptoms Gastrointestinal: Reports: Abdominal Pain (ariund incisions and LLQ) Genitourinary: Reports: No Symptoms Musculoskeletal: Reports: No Symptoms Skin: Reports: No Symptoms Neurological: Reports: No Symptoms Psychiatric: Reports: No Symptoms - Patient Data Vitals - Most Recent: Last Vital Signs Temp 98.2 F 05/09/20 04:03 Pulse 56 L 05/09/20 04:03 Resp 16 05/09/20 04:03 BP 126/88 05/09/20 04:03 Pulse Ox 95 05/09/20 07:27 Weight - Most Recent: 82.554 kg I&O - Last 24 Hours: Intake & Output 05/08/20 05/09/20 05/09/20 22:59 06:59 14:59 Intake Total 1820 600 Output Total 500 300 Balance 1320 300 Lab Results Last 24 Hours: Laboratory Results - last 24 hr 05/09/20 05/09/20 Range/Units 04:13 04:13 WBC 16.56 H (3.98-10.04) K/mm3 RBC 3.35 L (3.98-5.22) M/mm3 Hgb 9.9 L (11.2-15.7) gm/dl Hct 31.7 L (34.1-44.9) % MCV 94.6 (79.4-94.8) fl MCH 29.6 (25.6-32.2) pg MCHC 31.2 L (32.2-35.5) g/dl RDW Std Deviation 43.0 (36.4-46.3) fL Plt Count 279 (182-369) K/mm3 MPV 10.2 (9.4-12.3) fl Neut % (Auto) 71.7 H (34.0-71.1) % Lymph % (Auto) 19.8 (19.3-51.7) % Ida % (Auto) 8.2 (4.7-12.5) % Eos % (Auto) 0 L (0.7-5.8) Baso % (Auto) 0.1 (0.1-1.2) % Neut # (Auto) 11.88 H (1.56-6.13) K/mm3 Lymph # (Auto) 3.28 (1.18-3.74) K/mm3 Ida # (Auto) 1.35 H (0.24-0.36) K/mm3 Eos # (Auto) 0.00 L (0.04-0.36) K/mm3 Baso # (Auto) 0.01 (0.01-0.08) K/mm3 Sodium 141 (136-145) mEq/L Potassium 3.8 (3.5-5.1) mEq/L Chloride 105 (98-107) mEq/L Carbon Dioxide 26 (21-32) mEq/L Anion Gap 13.8 (5-15) BUN 6 L (7-18) mg/dL Creatinine 0.9 (0.55-1.02) mg/dL Est Cr Clr Drug Dosing 52.24 mL/min Estimated GFR (MDRD) > 60 (>60) mL/min BUN/Creatinine Ratio 6.7 L (14-18) Glucose 103 (80-115) mg/dL Calcium 8.6 (8.5-10.1) mg/dL Phosphorus 3.2 (2.6-4.7) mg/dL Magnesium 1.9 (1.8-2.4) mg/dl Med Orders - Current: Current Medications Acetaminophen (Tylenol) 650 mg PO Q6H [facility] Last Admin: 05/09/20 05:59 Dose: 650 mg Documented by: Albuterol (Proventil Hfa) 2 gm INH Q4H PRN PRN Reason: Shortness of Breath Last Admin: 05/09/20 07:26 Dose: 2 puff Documented by: Cyanocobalamin (Vitamin B12) 4,000 mcg PO DAILY [facility] Last Admin: 05/08/20 09:56 Dose: 4,000 mcg Documented by: Diltiazem HCl (Cardizem Cd) 120 mg PO DAILY [facility] Last Admin: 05/08/20 09:54 Dose: 120 mg Documented by: Diphenhydramine HCl (Benadryl) 25 mg PO Q6H PRN PRN Reason: Itching Docusate Sodium (Colace) 100 mg PO BID PRN PRN Reason: Constipation Enoxaparin Sodium (Lovenox) 40 mg SUBCUT DAILY [facility] Last Admin: 05/08/20 09:53 Dose: 40 mg Documented by: Fluticasone Propionate (Flonase) 0 gm NASBOTH BID [facility] Last Admin: 05/08/20 21:25 Dose: 2 spray Documented by: Guaifenesin (Mucinex) 600 mg PO DAILY [facility] Last Admin: 05/08/20 09:57 Dose: 600 mg Documented by: Hydromorphone HCl (Dilaudid) 1 mg IVPUSH Q3H PRN PRN Reason: Pain (severe 7-10) Last Admin: 05/08/20 21:56 Dose: 1 mg Documented by: Hydroxyzine HCl (Atarax) 25 mg PO Q12H PRN PRN Reason: ANXIETY Last Admin: 05/08/20 21:21 Dose: 25 mg Documented by: Mometasone Furoate/Formoterol Fumar (Dulera 200-5 Mcg) 2 puff IH BID [facility] Last Admin: 05/09/20 07:27 Dose: 2 puff Documented by: Ondansetron HCl (Zofran) 4 mg IVPUSH Q6H PRN PRN Reason: Nausea/Vomiting Last Admin: 05/08/20 18:02 Dose: 4 mg Documented by: Oxycodone HCl (Oxycodone) 5 mg PO Q6H PRN PRN Reason: Abdominal Pain Last Admin: 05/08/20 09:57 Dose: 5 mg Documented by: Pantoprazole Sodium (Protonix) 40 mg PO DAILY@0700 [facility] Last Admin: 05/08/20 06:16 Dose: 40 mg Documented by: Rosuvastatin Calcium (Crestor) 20 mg PO DAILY [facility] Last Admin: 05/08/20 09:56 Dose: 20 mg Documented by: Discontinued Medications Albuterol/Ipratropium (Duoneb 3.0-0.5 Mg/3 Ml) 3 ml NEB Q4HRRT PRN PRN Reason: Shortness of Breath Stop: 05/06/20 18:00 Last Admin: 05/06/20 17:41 Dose: 3 ml Documented by: Bupivacaine HCl (Sensorcaine-Mpf 0.5%) Confirm Administered Dose 10 ml .ROUTE .STK-MED ONE Stop: 05/06/20 10:09 Last Admin: 05/06/20 16:45 Dose: 7 ml Documented by: Bupivacaine HCl/Epinephrine Bitart (Marcaine 0.5%/Epinephrine 1:200,000) Confirm Administered Dose 50 ml .ROUTE .STK-MED ONE Stop: 05/06/20 09:07 Last Admin: 05/06/20 16:45 Dose: 50 ml Documented by: Cholecalciferol (Vitamin D3) 3,000 unit PO DAILY [facility] Dexamethasone (Dexamethasone) Confirm Administered Dose 20 mg .ROUTE .STK-MED ONE Stop: 05/06/20 15:02 Diphenhydramine HCl (Benadryl) 25 mg IVPUSH Q6H PRN PRN Reason: Pruritis Stop: 05/06/20 18:00 Last Admin: 05/06/20 18:02 Dose: 25 mg Documented by: Ephedrine Sulfate (Ephedrine 25 Mg/5 Ml Syringe) Confirm Administered Dose 25 mg IV .STK-MED ONE Stop: 05/06/20 11:50 Epinephrine HCl (Adrenalin) Confirm Administered Dose 1 mg .ROUTE .STK-MED ONE Stop: 05/06/20 13:36 Fentanyl (Sublimaze) Confirm Administered Dose 250 mcg .ROUTE .STK-MED ONE Stop: 05/06/20 10:04 Fentanyl (Sublimaze) 100 mcg IVPUSH Q5M PRN PRN Reason: Pain Stop: 05/06/20 18:00 Furosemide (Lasix) Confirm Administered Dose 20 mg .ROUTE .STK-MED ONE Stop: 05/06/20 14:24 Glycopyrrolate () Confirm Administered Dose 1 mg .ROUTE .STK-MED ONE Stop: 05/06/20 17:23 Hydromorphone HCl (Dilaudid) Confirm Administered Dose 0.5 mg .ROUTE .STK-MED ONE Stop: 05/06/20 17:15 Hydromorphone HCl (Dilaudid) Confirm Administered Dose 0.5 mg .ROUTE .STK-MED ONE Stop: 05/06/20 17:35 Hydromorphone HCl (Dilaudid) 1 mg IVPUSH Q3H PRN PRN Reason: Pain (severe 7-10) Lactated Ringer's (Ringers, Lactated) 1,000 mls @ 125 mls/hr IV ASDIRECTED [facility] Stop: 05/06/20 23:00 Last Admin: 05/06/20 09:30 Dose: 125 mls/hr Documented by: Ertapenem 1 gm/ Sodium (Chloride) 50 mls @ 100 mls/hr IV ONETIME ONE Stop: 05/06/20 09:59 Last Admin: 05/06/20 19:35 Dose: Not Given Documented by: Lidocaine HCl (Xylocaine-Mpf 1%) Confirm Administered Dose 4 mls @ as directed .ROUTE .STK-MED ONE Stop: 05/06/20 09:23 Lactated Ringer's (Ringers, Lactated) Confirm Administered Dose 1,000 mls @ as directed .ROUTE .STK-MED ONE Stop: 05/06/20 12:30 Lactated Ringer's (Ringers, Lactated) Confirm Administered Dose 1,000 mls @ as directed .ROUTE .STK-MED ONE Stop: 05/06/20 12:30 Dextrose/Water (Dextrose 5% In Water) Confirm Administered Dose 0 mls @ as directed .ROUTE .STK-MED ONE Stop: 05/06/20 14:08 Lactated Ringer's (Ringers, Lactated) Confirm Administered Dose 1,000 mls @ as directed .ROUTE .STK-MED ONE Stop: 05/06/20 16:24 Magnesium Sulfate 4 gm/ Premix 50 mls @ 12.5 mls/hr IV ONETIME ONE Stop: 05/07/20 14:59 Last Admin: 05/07/20 11:20 Dose: 12.5 mls/hr Documented by: Potassium Chloride/Dextrose/Sod Cl (D5 1/2 Ns W/ 20 Meq/L Kcl) 1,000 mls @ 50 mls/hr IV ASDIRECTED [facility] Last Admin: 05/09/20 03:45 Dose: 75 mls/hr Documented by: Lidocaine/Sodium Bicarbonate (Buffered Lidocaine 1% In Ns 8.4%) 0.25 ml IDERM ONETIME PRN PRN Reason: Prior to IV Start Stop: 05/06/20 18:00 Last Admin: 05/06/20 09:29 Dose: 0.25 ml Documented by: Methylene Blue (Provayblue) Confirm Administered Dose 50 mg .ROUTE .STK-MED ONE Stop: 05/06/20 14:06 Last Admin: 05/06/20 14:11 Dose: 50 mg Documented by: Midazolam HCl (Versed 1 Mg/Ml) Confirm Administered Dose 2 mg .ROUTE .STK-MED ONE Stop: 05/06/20 09:24 Miscellaneous Medication (Phenylephrine 1 Mg/10 Ml-Ns) Confirm Administered Dose 1 mg IV .STK-MED ONE Stop: 05/06/20 10:56 Morphine Sulfate (Duramorph Pf) Confirm Administered Dose 10 mg .ROUTE .STK-MED ONE Stop: 05/06/20 10:04 Neostigmine Methylsulfate (Neostigmine Methylsulfate) Confirm Administered Dose 5 mg .ROUTE .STK-MED ONE Stop: 05/06/20 17:23 Ondansetron HCl (Zofran) Confirm Administered Dose 8 mg .ROUTE .STK-MED ONE Stop: 05/06/20 12:29 Ondansetron HCl (Zofran) 4 mg IVPUSH ONETIME PRN PRN Reason: Nausea/Vomiting Stop: 05/06/20 18:00 Phenylephrine HCl (Ryan-Synephrine) Confirm Administered Dose 10 mg .ROUTE .STK- MED ONE Stop: 05/06/20 11:57 Propofol (Diprivan 20 Ml) Confirm Administered Dose 200 mg .ROUTE .[facility]-MED ONE Stop: 05/06/20 09:24 Rocuronium [place] (Zemuron) Confirm Administered Dose 50 mg .ROUTE .STK-MED ONE Stop: 05/06/20 09:28 Rocuronium [place] (Zemuron) Confirm Administered Dose 50 mg .ROUTE .[facility]-MED ONE Stop: 05/06/20 14:44 Scopolamine (Transderm-Scop) 1.5 mg TOP ONETIME ONE Stop: 05/06/20 09:31 Last Admin: 05/06/20 09:13 Dose: 1.5 mg Documented by: Sodium Chloride (Saline Flush) 10 ml FLUSH ASDIRECTED PRN PRN Reason: Keep Vein Open Stop: 05/06/20 18:00 Sodium Chloride (Normal Saline) Confirm Administered Dose 0 ml .ROUTE .STK-MED ONE Stop: 05/06/20 14:06 - Exam General: Alert, Oriented, Cooperative Lungs: Clear to Auscultation, Normal Respiratory Effort Cardiovascular: Regular Rate, Regular Rhythm, No Murmurs GI/Abdominal Exam: Soft, No Organomegaly, No Abnormal Bruit, Distended (slig htly), Tender (around the incisions) Skin: Warm, Dry, Intact Wound/Incisions: Healing Well, Dressing Dry and Intact, No Drainage Sepsis Event Note - Evaluation Sepsis Screening Result: No Definite Risk - Focused Exam Vital Signs: Vital Signs Temp Pulse Resp BP Pulse Ox Pulse Ox 05/09/20 07:27 95 05/09/20 04:03 98.2 F 56 L 16 126/88 92 L 05/08/20 23:22 98.2 F 68 15 99/73 92 L - Problem List Review Problem List Initiated/Reviewed/Updated: No - My Orders Last 24 Hours: My Active Orders 05/09/20 Lunch Full Liquid Diet [DIET] - Assessment Assessment:: POD 3 s/p lap left colectomy for diverticulitis. - Plan Plan:: - Hep lock IVF - Advance diet to FLD, if tolerates it for breakfast and lunch, we may advance to regular for dinner - hydroxyzine for itching - Continue to encourage ambulation, IS - CBC tomorrow - Can shower today. Let water run over the incisions and tap dry, do nit scrub - Place dry dressing over the incision before putting abd binder/clothing on. Will plan for tentative discharge tomorrow if clinically well.
[2020-05-09] MEDS: Enoxaparin 40 MG/0.4 ML Syringe SUBCUT SCH (09:18)
[2020-05-09] MEDS: Cyanocobalamin (Vitamin B12) 1,000 MCG Tab PO SCH (09:19)
[2020-05-09] MEDS: Diltiazem 120 MG Cap.CD PO SCH (09:19)
[2020-05-09] MEDS: oxyCODONE 5 MG Tab PO PRN (09:20)
[2020-05-09] MEDS: Pantoprazole 40 MG Tab.CR PO SCH (09:20)
[2020-05-09] MEDS: guaiFENesin 600 MG Tab.ER PO SCH (09:20)
[2020-05-09] MEDS: Rosuvastatin 10 MG Tab PO SCH (09:20)
[2020-05-09] MEDS: Fluticasone Propionate Nasal Spray 16 GM Bottle NASBOTH SCH ×2 (09:28→20:12)
[2020-05-10] MEDS: Acetaminophen 325 MG Tab PO SCH ×3 (00:56→11:24)
[2020-05-10] MEDS: HYDROmorphone 1 MG/ML Syringe IVPUSH PRN (03:52)
[2020-05-10] MEDS: Pantoprazole 40 MG Tab.CR PO SCH (06:01)
[2020-05-10] MEDS: Albuterol 6.7 GM Inhaler INH PRN (07:59)
[2020-05-10] MEDS: Formoterol/Mometasone 200-5 MCG 8.8 GM Inhaler IH SCH (08:00)
[2020-05-10] MEDS: guaiFENesin 600 MG Tab.ER PO SCH (09:34)
[2020-05-10] MEDS: Cyanocobalamin (Vitamin B12) 1,000 MCG Tab PO SCH (09:34)
[2020-05-10] MEDS: Rosuvastatin 10 MG Tab PO SCH (09:34)
[2020-05-10] MEDS: Diltiazem 120 MG Cap.CD PO SCH (09:34)
[2020-05-10] MEDS: Enoxaparin 40 MG/0.4 ML Syringe SUBCUT SCH (09:35)
[2020-05-10] MEDS: Fluticasone Propionate Nasal Spray 16 GM Bottle NASBOTH SCH (10:34)
--- NOTE | 2020-05-10 11:53 | PCM.PN ---
- General Info Date of Service: 05/10/20 Admission Dx/Problem (Free Text): Diverticulitis Subjective Update: DOing well. No BM today, Tolerating diet, no fevers of chills. Functional Status: Reports: Pain Controlled, Tolerating Diet, Ambulating, Urinating - Review of Systems General: Reports: No Symptoms HEENT: Reports: No Symptoms Pulmonary: Reports: No Symptoms Cardiovascular: Reports: No Symptoms Gastrointestinal: Reports: Abdominal Pain Genitourinary: Reports: No Symptoms Musculoskeletal: Reports: No Symptoms Skin: Reports: No Symptoms Neurological: Reports: No Symptoms - Patient Data Vitals - Most Recent: Last Vital Signs Temp 97.9 F 05/10/20 08:23 Pulse 65 05/10/20 09:34 Resp 18 05/10/20 08:23 BP 118/87 05/10/20 09:34 Pulse Ox 96 05/10/20 08:23 Weight - Most Recent: 82.327 kg I&O - Last 24 Hours: Intake & Output 05/09/20 05/10/20 05/10/20 22:59 06:59 14:59 Intake Total 940 300 Output Total 750 Balance 190 300 Lab Results Last 24 Hours: Laboratory Results - last 24 hr 05/10/20 Range/Units 05:07 WBC 15.12 H (3.98-10.04) K/mm3 RBC 3.85 L (3.98-5.22) M/mm3 Hgb 11.4 D (11.2-15.7) gm/dl Hct 36.2 (34.1-44.9) % MCV 94.0 (79.4-94.8) fl MCH 29.6 (25.6-32.2) pg MCHC 31.5 L (32.2-35.5) g/dl RDW Std Deviation 42.8 (36.4-46.3) fL Plt Count 316 (182-369) K/mm3 MPV 9.9 (9.4-12.3) fl Neut % (Auto) 61.0 (34.0-71.1) % Lymph % (Auto) 29.2 (19.3-51.7) % [place] % (Auto) 8.9 (4.7-12.5) % Eos % (Auto) 0.5 L (0.7-5.8) Baso % (Auto) 0.2 (0.1-1.2) % Neut # (Auto) 9.23 H (1.56-6.13) K/mm3 Lymph # (Auto) 4.41 H (1.18-3.74) K/mm3 [place] # (Auto) 1.35 H (0.24-0.36) K/mm3 Eos # (Auto) 0.07 (0.04-0.36) K/mm3 Baso # (Auto) 0.03 (0.01-0.08) K/mm3 Med Orders - Current: Current Medications Acetaminophen (Tylenol) 650 mg PO Q6H [facility] Last Admin: 05/10/20 11:24 Dose: 650 mg Documented by: Albuterol (Proventil Hfa) 2 gm INH Q4H PRN PRN Reason: Shortness of Breath Last Admin: 05/10/20 07:59 Dose: 2 puff Documented by: Cyanocobalamin (Vitamin B12) 4,000 mcg PO DAILY [facility] Last Admin: 05/10/20 09:34 Dose: 4,000 mcg Documented by: Diltiazem HCl (Cardizem Cd) 120 mg PO DAILY [facility] Last Admin: 05/10/20 09:34 Dose: 120 mg Documented by: Diphenhydramine HCl (Benadryl) 25 mg PO Q6H PRN PRN Reason: Itching Docusate Sodium (Colace) 100 mg PO BID PRN PRN Reason: Constipation Enoxaparin Sodium (Lovenox) 40 mg SUBCUT DAILY [facility] Last Admin: 05/10/20 09:35 Dose: 40 mg Documented by: Fluticasone Propionate (Flonase) 0 gm NASBOTH BID [facility] Last Admin: 05/10/20 10:34 Dose: 1 spray Documented by: Guaifenesin (Mucinex) 600 mg PO DAILY [facility] Last Admin: 05/10/20 09:34 Dose: 600 mg Documented by: Hydromorphone HCl (Dilaudid) 1 mg IVPUSH Q3H PRN PRN Reason: Pain (severe 7-10) Last Admin: 05/10/20 03:52 Dose: 1 mg Documented by: Hydroxyzine HCl (Atarax) 25 mg PO Q12H PRN PRN Reason: ANXIETY Last Admin: 05/08/20 21:21 Dose: 25 mg Documented by: Mometasone Furoate/Formoterol Fumar (Dulera 200-5 Mcg) 2 puff IH BID [facility] Last Admin: 05/10/20 08:00 Dose: 2 puff Documented by: Ondansetron HCl (Zofran) 4 mg IVPUSH Q6H PRN PRN Reason: Nausea/Vomiting Last Admin: 05/08/20 18:02 Dose: 4 mg Documented by: Oxycodone HCl (Oxycodone) 5 mg PO Q6H PRN PRN Reason: Abdominal Pain Last Admin: 05/09/20 09:20 Dose: 5 mg Documented by: Pantoprazole Sodium (Protonix) 40 mg PO DAILY@0700 [facility] Last Admin: 05/10/20 06:01 Dose: 40 mg Documented by: Rosuvastatin Calcium (Crestor) 20 mg PO DAILY [facility] Last Admin: 05/10/20 09:34 Dose: 20 mg Documented by: Discontinued Medications Albuterol/Ipratropium (Duoneb 3.0-0.5 Mg/3 Ml) 3 ml NEB Q4HRRT PRN PRN Reason: Shortness of Breath Stop: 05/06/20 18:00 Last Admin: 05/06/20 17:41 Dose: 3 ml Documented by: Bupivacaine HCl (Sensorcaine-Mpf 0.5%) Confirm Administered Dose 10 ml .ROUTE .STK-MED ONE Stop: 05/06/20 10:09 Last Admin: 05/06/20 16:45 Dose: 7 ml Documented by: Bupivacaine HCl/Epinephrine Bitart (Marcaine 0.5%/Epinephrine 1:200,000) Confirm Administered Dose 50 ml .ROUTE .STK-MED ONE Stop: 05/06/20 09:07 Last Admin: 05/06/20 16:45 Dose: 50 ml Documented by: Cholecalciferol (Vitamin D3) 3,000 unit PO DAILY [facility] Dexamethasone (Dexamethasone) Confirm Administered Dose 20 mg .ROUTE .STK-MED ONE Stop: 05/06/20 15:02 Diphenhydramine HCl (Benadryl) 25 mg IVPUSH Q6H PRN PRN Reason: Pruritis Stop: 05/06/20 18:00 Last Admin: 05/06/20 18:02 Dose: 25 mg Documented by: Ephedrine Sulfate (Ephedrine 25 Mg/5 Ml Syringe) Confirm Administered Dose 25 mg IV .STK-MED ONE Stop: 05/06/20 11:50 Epinephrine HCl (Adrenalin) Confirm Administered Dose 1 mg .ROUTE .STK-MED ONE Stop: 05/06/20 13:36 Fentanyl (Sublimaze) Confirm Administered Dose 250 mcg .ROUTE .STK-MED ONE Stop: 05/06/20 10:04 Fentanyl (Sublimaze) 100 mcg IVPUSH Q5M PRN PRN Reason: Pain Stop: 05/06/20 18:00 Furosemide (Lasix) Confirm Administered Dose 20 mg .ROUTE .STK-MED ONE Stop: 05/06/20 14:24 Glycopyrrolate () Confirm Administered Dose 1 mg .ROUTE .STK-MED ONE Stop: 05/06/20 17:23 Hydromorphone HCl (Dilaudid) Confirm Administered Dose 0.5 mg .ROUTE .STK-MED ONE Stop: 05/06/20 17:15 Hydromorphone HCl (Dilaudid) Confirm Administered Dose 0.5 mg .ROUTE .STK-MED ONE Stop: 05/06/20 17:35 Hydromorphone HCl (Dilaudid) 1 mg IVPUSH Q3H PRN PRN Reason: Pain (severe 7-10) Lactated Ringer's (Ringers, Lactated) 1,000 mls @ 125 mls/hr IV ASDIRECTED NEFTALI Stop: 05/06/20 23:00 Last Admin: 05/06/20 09:30 Dose: 125 mls/hr Documented by: Ertapenem 1 gm/ Sodium (Chloride) 50 mls @ 100 mls/hr IV ONETIME ONE Stop: 05/06/20 09:59 Last Admin: 05/06/20 19:35 Dose: Not Given Documented by: Lidocaine HCl (Xylocaine-Mpf 1%) Confirm Administered Dose 4 mls @ as directed .ROUTE .STK-MED ONE Stop: 05/06/20 09:23 Lactated Ringer's (Ringers, Lactated) Confirm Administered Dose 1,000 mls @ as directed .ROUTE .STK-MED ONE Stop: 05/06/20 12:30 Lactated Ringer's (Ringers, Lactated) Confirm Administered Dose 1,000 mls @ as directed .ROUTE .STK-MED ONE Stop: 05/06/20 12:30 Dextrose/Water (Dextrose 5% In Water) Confirm Administered Dose 0 mls @ as directed .ROUTE .STK-MED ONE Stop: 05/06/20 14:08 Lactated Ringer's (Ringers, Lactated) Confirm Administered Dose 1,000 mls @ as directed .ROUTE .STK-MED ONE Stop: 05/06/20 16:24 Magnesium Sulfate 4 gm/ Premix 50 mls @ 12.5 mls/hr IV ONETIME ONE Stop: 05/07/20 14:59 Last Admin: 05/07/20 11:20 Dose: 12.5 mls/hr Documented by: Potassium Chloride/Dextrose/Sod Cl (D5 1/2 Ns W/ 20 Meq/L Kcl) 1,000 mls @ 50 mls/hr IV ASDIRECTED [facility] Last Admin: 05/09/20 03:45 Dose: 75 mls/hr Documented by: Lidocaine/Sodium Bicarbonate (Buffered Lidocaine 1% In Ns 8.4%) 0.25 ml IDERM ONETIME PRN PRN Reason: Prior to IV Start Stop: 05/06/20 18:00 Last Admin: 05/06/20 09:29 Dose: 0.25 ml Documented by: Methylene Blue (Provayblue) Confirm Administered Dose 50 mg .ROUTE .STK-MED ONE Stop: 05/06/20 14:06 Last Admin: 05/06/20 14:11 Dose: 50 mg Documented by: Midazolam HCl (Versed 1 Mg/Ml) Confirm Administered Dose 2 mg .ROUTE .STK-MED ONE Stop: 05/06/20 09:24 Miscellaneous Medication (Phenylephrine 1 Mg/10 Ml-Ns) Confirm Administered Dose 1 mg IV .STK-MED ONE Stop: 05/06/20 10:56 Morphine Sulfate (Duramorph Pf) Confirm Administered Dose 10 mg .ROUTE .STK-MED ONE Stop: 05/06/20 10:04 Neostigmine Methylsulfate (Neostigmine Methylsulfate) Confirm Administered Dose 5 mg .ROUTE .STK-MED ONE Stop: 05/06/20 17:23 Ondansetron HCl (Zofran) Confirm Administered Dose 8 mg .ROUTE .STK-MED ONE Stop: 05/06/20 12:29 Ondansetron HCl (Zofran) 4 mg IVPUSH ONETIME PRN PRN Reason: Nausea/Vomiting Stop: 05/06/20 18:00 Phenylephrine HCl ([place]-Synephrine) Confirm Administered Dose 10 mg .ROUTE .STK- MED ONE Stop: 05/06/20 11:57 Propofol (Diprivan 20 Ml) Confirm Administered Dose 200 mg .ROUTE .STK-MED ONE Stop: 05/06/20 09:24 Rocuronium [place] (Zemuron) Confirm Administered Dose 50 mg .ROUTE .STK-MED ONE Stop: 05/06/20 09:28 Rocuronium [place] (Zemuron) Confirm Administered Dose 50 mg .ROUTE .STK-MED ONE Stop: 05/06/20 14:44 Scopolamine (Transderm-Scop) 1.5 mg TOP ONETIME ONE Stop: 05/06/20 09:31 Last Admin: 05/06/20 09:13 Dose: 1.5 mg Documented by: Sodium Chloride (Saline Flush) 10 ml FLUSH ASDIRECTED PRN PRN Reason: Keep Vein Open Stop: 05/06/20 18:00 Sodium Chloride (Normal Saline) Confirm Administered Dose 0 ml .ROUTE .STK-MED ONE Stop: 05/06/20 14:06 - Exam General: Alert, Oriented, Cooperative Lungs: Normal Respiratory Effort Cardiovascular: Regular Rate, Regular Rhythm GI/Abdominal Exam: Soft, No Organomegaly, No Distention, No Abnormal Bruit, Tender (around incisions) Sepsis Event Note - Evaluation Sepsis Screening Result: No Definite Risk - Focused Exam Vital Signs: Vital Signs Temp Pulse Resp BP Pulse Ox Pulse Ox 05/10/20 09:34 65 118/87 05/10/20 08:23 97.9 F 65 18 118/87 96 05/10/20 08:00 94 L 05/10/20 03:45 97.7 F 67 18 119/60 94 L 05/10/20 01:19 98.4 F 59 L 16 113/84 95 - Problem List Review Problem List Initiated/Reviewed/Updated: No - My Orders Last 24 Hours: My Active Orders 05/09/20 Lunch Regular Diet [DIET] 05/10/20 11:50 Ready for Discharge [RC] PER UNIT ROUTINE - Assessment Assessment:: POD 4 s/p lap left colectomy for diverticulitis. - Plan Plan:: - Tolerating diet - ambulating -pain controlled with oral medications Patient will be discharged to home today. FOllow up with me in 2 weeks.
--- NOTE | 2020-05-10 11:56 | PCM.DCSUM1 ---
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 She did well post operatively. DIet was gradually advanced. She brett;l follow up with me in clinic in 2 weeks. Diagnosis: Stroke: No - Discharge Data Discharge Date: 05/10/20 Discharge Disposition: Home, Self-Care 01 Condition: Good - Referral to Home Health Primary Care Physician: PCP None - Patient Instructions Diet: Regular Diet as Tolerated Activity: No Lifting Over 20 Pounds (for 6 weeks) Driving: Do Not Drive (until off of opioid pain medications completely) Showering/Bathing: May Shower Wound/Incision Care: Keep Operative Site/Wound Site Clean and Dry Notify Provider of: Fever, Increased Pain, Swelling and Redness, Drainage Other/Special Instructions: - Take Tylenol or Ibuprofen every 6-8 hours for pain. If pain becomes worse, take the prescribed opioid pain medications. - If you have no stool for 2 consecutive days or stools are hard to pass, take stool softeners such as Dulcolax available over the counter. - Discharge Plan *PRESCRIPTION DRUG MONITORING PROGRAM REVIEWED*: No *COPY OF PRESCRIPTION DRUG MONITORING REPORT IN PATIENT ROB: No Prescriptions/Med Rec: oxyCODONE 5 mg PO Q6H PRN 3 Days #12 tablet PRN Reason: Abdominal Pain Home Medications: Home Meds Cholecalciferol (Vitamin D3) [Vitamin D] 3,000 unit PO DAILY 10/16/19 [History] Lactobacillus Combo No.11 [Probiotic] 1 cap PO DAILY 10/16/19 [History] Vitamin E 3 cap PO BID 10/16/19 [History] Wheat Dextrin [Benefiber] 1 packet PO DAILY 10/16/19 [History] Albuterol [Ventolin HFA] 2 puff INH Q4H PRN 05/03/20 [History] Budesonide/Formoterol Fumarate [Symbicort 160-4.5 Mcg Inhaler] 2 puff INH BID 05/03/20 [History] Cyanocobalamin (Vitamin B-12) [Vitamin B-12] 1,000 mcg PO DAILY 05/03/20 [History] Esomeprazole [NexIUM] 40 mg PO QAM 05/03/20 [History] Famotidine [Pepcid] 20 mg PO BEDTIME 05/03/20 [History] Fluticasone Propionate [Flonase] 1 spray NASBOTH BID 05/03/20 [History] Multivitamin 1 tab PO DAILY 05/03/20 [History] Rosuvastatin Calcium 20 mg PO DAILY 05/03/20 [History] dilTIAZem HCL [Cardizem] 120 mg PO DAILY 05/03/20 [History] guaiFENesin [Mucinex] 600 mg PO DAILY PRN 05/03/20 [History] hydrOXYzine pamoate [Vistaril] 25 mg PO Q12H PRN 05/03/20 [History] ondansetron HCL [Zofran] 4 mg PO Q6H PRN 05/03/20 [History] Hydrocodone/Acetaminophen [Exchange 5-325 Tablet] 1 tab PO ASDIRECTED 05/06/20 [History] PEG 400/Hypromellose/Glycerin [Artificial Tears Drops] 1 drop EYEBOTH BID 05/06/20 [History] Acetaminophen [Tylenol] 650 mg PO Q6H tablet 05/10/20 [Rx] oxyCODONE 5 mg PO Q6H PRN 3 Days #12 tablet 05/10/20 [Rx] Oxygen Therapy Mode: Room Air Patient Handouts: COVID-19 Frequently Asked Questions, COVID-19: How to Protect Yourself and Others - CDC, Laparoscopic Colectomy, Laparoscopic Colectomy, Care After Referrals: Alejandrina Ferrara MD [Physician] - 05/24/20 10:30 am (Please follow up with Dr. Ferrara on May 24 at 10:30.) - Discharge Summary/Plan Comment DC Time >30 min.: Yes (discharge teaching) - General Info Date of Service: 05/10/20 Admission Dx/Problem (Free Text: Diverticulitis Subjective Update: DOing well. tolerating diet, ambulating, has bowel function Functional Status: Reports: Pain Controlled, Tolerating Diet, Ambulating, Urinating - Review of Systems General: Reports: No Symptoms HEENT: Reports: No Symptoms Pulmonary: Reports: No Symptoms Cardiovascular: Reports: No Symptoms Gastrointestinal: Reports: Abdominal Pain Genitourinary: Reports: No Symptoms Musculoskeletal: Reports: No Symptoms Skin: Reports: No Symptoms Neurological: Reports: No Symptoms Psychiatric: Reports: No Symptoms - Patient Data Vitals - Most Recent: Last Vital Signs Temp 97.9 F 05/10/20 08:23 Pulse 65 05/10/20 09:34 Resp 18 05/10/20 08:23 BP 118/87 05/10/20 09:34 Pulse Ox 96 05/10/20 08:23 Weight - Most Recent: 82.327 kg I&O - Last 24 hours: Intake & Output 05/09/20 05/10/20 05/10/20 22:59 06:59 14:59 Intake Total 940 300 Output Total 750 Balance 190 300 Lab Results - Last 24 hrs: Laboratory Results - last 24 hr 05/10/20 Range/Units 05:07 WBC 15.12 H (3.98-10.04) K/mm3 RBC 3.85 L (3.98-5.22) M/mm3 Hgb 11.4 D (11.2-15.7) gm/dl Hct 36.2 (34.1-44.9) % MCV 94.0 (79.4-94.8) fl MCH 29.6 (25.6-32.2) pg MCHC 31.5 L (32.2-35.5) g/dl RDW Std Deviation 42.8 (36.4-46.3) fL Plt Count 316 (182-369) K/mm3 MPV 9.9 (9.4-12.3) fl Neut % (Auto) 61.0 (34.0-71.1) % Lymph % (Auto) 29.2 (19.3-51.7) % [place] % (Auto) 8.9 (4.7-12.5) % Eos % (Auto) 0.5 L (0.7-5.8) Baso % (Auto) 0.2 (0.1-1.2) % Neut # (Auto) 9.23 H (1.56-6.13) K/mm3 Lymph # (Auto) 4.41 H (1.18-3.74) K/mm3 [place] # (Auto) 1.35 H (0.24-0.36) K/mm3 Eos # (Auto) 0.07 (0.04-0.36) K/mm3 Baso # (Auto) 0.03 (0.01-0.08) K/mm3 Med Orders - Current: Current Medications Acetaminophen (Tylenol) 650 mg PO Q6H [facility] Last Admin: 05/10/20 11:24 Dose: 650 mg Documented by: Albuterol (Proventil Hfa) 2 gm INH Q4H PRN PRN Reason: Shortness of Breath Last Admin: 05/10/20 07:59 Dose: 2 puff Documented by: Cyanocobalamin (Vitamin B12) 4,000 mcg PO DAILY [facility] Last Admin: 05/10/20 09:34 Dose: 4,000 mcg Documented by: Diltiazem HCl (Cardizem Cd) 120 mg PO DAILY [facility] Last Admin: 05/10/20 09:34 Dose: 120 mg Documented by: Diphenhydramine HCl (Benadryl) 25 mg PO Q6H PRN PRN Reason: Itching Docusate Sodium (Colace) 100 mg PO BID PRN PRN Reason: Constipation Enoxaparin Sodium (Lovenox) 40 mg SUBCUT DAILY [facility] Last Admin: 05/10/20 09:35 Dose: 40 mg Documented by: Fluticasone Propionate (Flonase) 0 gm NASBOTH BID [facility] Last Admin: 05/10/20 10:34 Dose: 1 spray Documented by: Guaifenesin (Mucinex) 600 mg PO DAILY [facility] Last Admin: 05/10/20 09:34 Dose: 600 mg Documented by: Hydromorphone HCl (Dilaudid) 1 mg IVPUSH Q3H PRN PRN Reason: Pain (severe 7-10) Last Admin: 05/10/20 03:52 Dose: 1 mg Documented by: Hydroxyzine HCl (Atarax) 25 mg PO Q12H PRN PRN Reason: ANXIETY Last Admin: 05/08/20 21:21 Dose: 25 mg Documented by: Mometasone Furoate/Formoterol Fumar (Dulera 200-5 Mcg) 2 puff IH BID [facility] Last Admin: 05/10/20 08:00 Dose: 2 puff Documented by: Ondansetron HCl (Zofran) 4 mg IVPUSH Q6H PRN PRN Reason: Nausea/Vomiting Last Admin: 05/08/20 18:02 Dose: 4 mg Documented by: Oxycodone HCl (Oxycodone) 5 mg PO Q6H PRN PRN Reason: Abdominal Pain Last Admin: 05/09/20 09:20 Dose: 5 mg Documented by: Pantoprazole Sodium (Protonix) 40 mg PO DAILY@0700 [facility] Last Admin: 05/10/20 06:01 Dose: 40 mg Documented by: Rosuvastatin Calcium (Crestor) 20 mg PO DAILY [facility] Last Admin: 05/10/20 09:34 Dose: 20 mg Documented by: Discontinued Medications Albuterol/Ipratropium (Duoneb 3.0-0.5 Mg/3 Ml) 3 ml NEB Q4HRRT PRN PRN Reason: Shortness of Breath Stop: 05/06/20 18:00 Last Admin: 05/06/20 17:41 Dose: 3 ml Documented by: Bupivacaine HCl (Sensorcaine-Mpf 0.5%) Confirm Administered Dose 10 ml .ROUTE .STK-MED ONE Stop: 05/06/20 10:09 Last Admin: 05/06/20 16:45 Dose: 7 ml Documented by: Bupivacaine HCl/Epinephrine Bitart (Marcaine 0.5%/Epinephrine 1:200,000) Confirm Administered Dose 50 ml .ROUTE .STK-MED ONE Stop: 05/06/20 09:07 Last Admin: 05/06/20 16:45 Dose: 50 ml Documented by: Cholecalciferol (Vitamin D3) 3,000 unit PO DAILY [facility] Dexamethasone (Dexamethasone) Confirm Administered Dose 20 mg .ROUTE .STK-MED ONE Stop: 05/06/20 15:02 Diphenhydramine HCl (Benadryl) 25 mg IVPUSH Q6H PRN PRN Reason: Pruritis Stop: 05/06/20 18:00 Last Admin: 05/06/20 18:02 Dose: 25 mg Documented by: Ephedrine Sulfate (Ephedrine 25 Mg/5 Ml Syringe) Confirm Administered Dose 25 mg IV .STK-MED ONE Stop: 05/06/20 11:50 Epinephrine HCl (Adrenalin) Confirm Administered Dose 1 mg .ROUTE .STK-MED ONE Stop: 05/06/20 13:36 Fentanyl (Sublimaze) Confirm Administered Dose 250 mcg .ROUTE .STK-MED ONE Stop: 05/06/20 10:04 Fentanyl (Sublimaze) 100 mcg IVPUSH Q5M PRN PRN Reason: Pain Stop: 05/06/20 18:00 Furosemide (Lasix) Confirm Administered Dose 20 mg .ROUTE .STK-MED ONE Stop: 05/06/20 14:24 Glycopyrrolate () Confirm Administered Dose 1 mg .ROUTE .STK-MED ONE Stop: 05/06/20 17:23 Hydromorphone HCl (Dilaudid) Confirm Administered Dose 0.5 mg .ROUTE .STK-MED ONE Stop: 05/06/20 17:15 Hydromorphone HCl (Dilaudid) Confirm Administered Dose 0.5 mg .ROUTE .STK-MED ON E Stop: 05/06/20 17:35 Hydromorphone HCl (Dilaudid) 1 mg IVPUSH Q3H PRN PRN Reason: Pain (severe 7-10) Lactated Ringer's (Ringers, Lactated) 1,000 mls @ 125 mls/hr IV ASDIRECTED [facility] Stop: 05/06/20 23:00 Last Admin: 05/06/20 09:30 Dose: 125 mls/hr Documented by: Ertapenem 1 gm/ Sodium (Chloride) 50 mls @ 100 mls/hr IV ONETIME ONE Stop: 05/06/20 09:59 Last Admin: 05/06/20 19:35 Dose: Not Given Documented by: Lidocaine HCl (Xylocaine-Mpf 1%) Confirm Administered Dose 4 mls @ as directed .ROUTE .STK-MED ONE Stop: 05/06/20 09:23 Lactated Ringer's (Ringers, Lactated) Confirm Administered Dose 1,000 mls @ as directed .ROUTE .STK-MED ONE Stop: 05/06/20 12:30 Lactated Ringer's (Ringers, Lactated) Confirm Administered Dose 1,000 mls @ as directed .ROUTE .STK-MED ONE Stop: 05/06/20 12:30 Dextrose/Water (Dextrose 5% In Water) Confirm Administered Dose 0 mls @ as directed .ROUTE .STK-MED ONE Stop: 05/06/20 14:08 Lactated Ringer's (Ringers, Lactated) Confirm Administered Dose 1,000 mls @ as directed .ROUTE .STK-MED ONE Stop: 05/06/20 16:24 Magnesium Sulfate 4 gm/ Premix 50 mls @ 12.5 mls/hr IV ONETIME ONE Stop: 05/07/20 14:59 Last Admin: 05/07/20 11:20 Dose: 12.5 mls/hr Documented by: Potassium Chloride/Dextrose/Sod Cl (D5 1/2 Ns W/ 20 Meq/L Kcl) 1,000 mls @ 50 mls/hr IV ASDIRECTED [facility] Last Admin: 05/09/20 03:45 Dose: 75 mls/hr Documented by: Lidocaine/Sodium Bicarbonate (Buffered Lidocaine 1% In Ns 8.4%) 0.25 ml IDERM ONETIME PRN PRN Reason: Prior to IV Start Stop: 05/06/20 18:00 Last Admin: 05/06/20 09:29 Dose: 0.25 ml Documented by: Methylene Blue (Provayblue) Confirm Administered Dose 50 mg .ROUTE .STK-MED ONE Stop: 05/06/20 14:06 Last Admin: 05/06/20 14:11 Dose: 50 mg Documented by: Midazolam HCl (Versed 1 Mg/Ml) Confirm Administered Dose 2 mg .ROUTE .STK-MED ONE Stop: 05/06/20 09:24 Miscellaneous Medication (Phenylephrine 1 Mg/10 Ml-Ns) Confirm Administered Dose 1 mg IV .STK-MED ONE Stop: 05/06/20 10:56 Morphine Sulfate (Duramorph Pf) Confirm Administered Dose 10 mg .ROUTE .STK-MED ONE Stop: 05/06/20 10:04 Neostigmine Methylsulfate (Neostigmine Methylsulfate) Confirm Administered Dose 5 mg .ROUTE .STK-MED ONE Stop: 05/06/20 17:23 Ondansetron HCl (Zofran) Confirm Administered Dose 8 mg .ROUTE .STK-MED ONE Stop: 05/06/20 12:29 Ondansetron HCl (Zofran) 4 mg IVPUSH ONETIME PRN PRN Reason: Nausea/Vomiting Stop: 05/06/20 18:00 Phenylephrine HCl (Ryan-Synephrine) Confirm Administered Dose 10 mg .ROUTE .STK- MED ONE Stop: 05/06/20 11:57 Propofol (Diprivan 20 Ml) Confirm Administered Dose 200 mg .ROUTE .STK-MED ONE Stop: 05/06/20 09:24 Rocuronium [place] (Zemuron) Confirm Administered Dose 50 mg .ROUTE .STK-MED ONE Stop: 05/06/20 09:28 Rocuronium [place] (Zemuron) Confirm Administered Dose 50 mg .ROUTE .STK-MED ONE Stop: 05/06/20 14:44 Scopolamine (Transderm-Scop) 1.5 mg TOP ONETIME ONE Stop: 05/06/20 09:31 Last Admin: 05/06/20 09:13 Dose: 1.5 mg Documented by: Sodium Chloride (Saline Flush) 10 ml FLUSH ASDIRECTED PRN PRN Reason: Keep Vein Open Stop: 05/06/20 18:00 Sodium Chloride (Normal Saline) Confirm Administered Dose 0 ml .ROUTE .STK-MED ONE Stop: 05/06/20 14:06 - Exam General: Reports: Alert, Oriented, Cooperative Lungs: Reports: Clear to Auscultation Cardiovascular: Reports: Regular Rate, Regular Rhythm GI/Abdominal Exam: Soft, No Organomegaly, No Distention, No Abnormal Bruit, No Mass, Tender (around incisions) Wound/Incisions: Reports: Healing Well, Dressing Dry and Intact, No Drainage
== END 2020-05-10 13:00 | disposition home or self-care (01) | DRG 331 ==
LOC: JD.MS 08:53 → JD.OB 05-08 11:21 → JD.MS 05-09 20:00
PROVIDERS: ADMIT Surgery; ATTEND Surgery
PROC: 0DBN0ZZ Excision of Sigmoid Colon, Open Approach (ICD-10-PCS; principal; 2020-05-06)
PROC: 0DBL0ZZ Excision of Transverse Colon, Open Approach (ICD-10-PCS; 2020-05-06)
DX: K57.32 Diverticulitis of large intestine without perforation or abscess without bleeding (principal); J44.9 Chronic obstructive pulmonary disease, unspecified; F41.9 Anxiety disorder, unspecified; M19.90 Unspecified osteoarthritis, unspecified site; K76.0 Fatty (change of) liver, not elsewhere classified; K21.9 Gastro-esophageal reflux disease without esophagitis; E78.00 Pure hypercholesterolemia, unspecified; I10 Essential (primary) hypertension; H53.2 Diplopia; Z88.8 Allergy status to other drugs, medicaments and biological substances; Z90.710 Acquired absence of both cervix and uterus; Z98.41 Cataract extraction status, right eye; Z98.42 Cataract extraction status, left eye; Z79.899 Other long term (current) drug therapy; Z85.41 Personal history of malignant neoplasm of cervix uteri; Z87.442 Personal history of urinary calculi; Z98.890 Other specified postprocedural states; Z88.5 Allergy status to narcotic agent; Z87.891 Personal history of nicotine dependence; Z20.828 Contact with and (suspected) exposure to other viral communicable diseases
CPT/HCPCS: 00790; 36415; 62320; 80048; 83735; 84100; 85025; 86850; 86900; 86901; 88307; 94640; 94760; 94761; 94762; A9270-GY; J0171; J0330; J1100; J1170; J1200; J1335; J1650; J2001; J2250; J2270; J2370; J2405; J2704; J2710; J3010; J3475; J3480; J3490; J7050; J7060; J7120; J7620-GY; U0002

== ENCOUNTER 2023-10-08 02:16 | Emergency (ER) | payer MEDICAID, MEDICARE ==
[2023-10-08] MEDS ORDERED: Aspirin 81 MG Tab.Chew PO ONE (02:26)
[2023-10-08] MEDS ORDERED: Hyoscyamine 0.125 MG Tab.SL SL ONE (02:26)
[2023-10-08] MEDS ORDERED: Sodium Chloride 0.9% 1,000 ML IV SCH (02:45)
[2023-10-08 02:55] LABS: BASOPHILS ABSOLUTE AUTO 0.1 K/mm3 (0.0-0.2); BASOPHILS PERCENT AUTO 0.5 % (0.0-1.0); EOSINOPHILS ABSOLUTE AUTO 0.3 K/mm3 (0.0-0.4); EOSINOPHILS PERCENT AUTO 2.6 % (0.0-6.0); HEMOGLOBIN 13.8 gm/dl (12.0-16.0); IMMATURE GRAN ABSOLUTE AUTO 0.03 K/mm3 (0.00-0.05); IMMATURE GRAN PERCENT AUTO 0.2 % (0.0-0.4); LYMPHOCYTES ABSOLUTE AUTO 5.4 K/mm3 (1.0-4.8); MEAN CORPUSCULAR HEMOGLOBIN 30.2 pg (28.0-32.0); MEAN CORPUSCULAR HGB CONC 33.7 g/dl (32.0-36.0); MEAN CORPUSCULAR VOLUME 89.7 fl (83.0-99.0); MEAN PLATELET VOLUME 9.2 fl (9.4-12.3); MONOCYTES ABSOLUTE AUTO 1.2 K/mm3 (0.0-0.8); MONOCYTES PERCENT AUTO 9.6 % (0.0-8.0); NEUTROPHILS ABSOLUTE AUTO 5.1 K/mm3 (1.8-7.7); NEUTROPHILS PERCENT AUTO 42.1 % (41.0-71.0); PLATELET COUNT,PLT 277 K/mm3 (150-400); RED BLOOD CELL COUNT 4.57 M/mm3 (4.10-5.30); WHITE BLOOD CELL COUNT,WBC 12.09 K/mm3 (3.9-11.3)
[2023-10-08 03:22] LABS: A/G RATIO 1.1 (1-2); ALANINE AMINOTRANSFERASE,ALT 22 U/L (14-59); ALBUMIN 3.7 g/dl (3.4-5.0); ALKALINE PHOSPHATASE 77 U/L (46-116); ANION GAP 16.1 (5-15); BILIRUBIN TOTAL 0.4 mg/dL (0.2-1.0); BLOOD UREA NITROGEN,BUN 20 mg/dL (7-18); BUN/CREATININE RATIO 18.2 (14-18); C-REACTIVE PROTEIN <0.2 mg/dL (<1.0); CALCIUM 8.8 mg/dL (8.5-10.1); CARBON DIOXIDE,CO2 22 mEq/L (21-32); CHLORIDE,CL 109 mEq/L (98-107); CREATININE 1.1 mg/dL (0.55-1.02); EST CRCL DRUG DOSING (CG) 40.49 mL/min; ESTIMATED GFR 55 mL/min (>60); GLUCOSE RANDOM 115 mg/dL (70-99); INR 0.96; MAGNESIUM 2.1 mg/dL (1.8-2.4); PROTEIN TOTAL,TP 7.2 g/dl (6.4-8.2); PROTHROMBIN TIME 10.3 SECONDS (9.7-12.0); SODIUM,NA 143 mEq/L (136-145); TROPONIN I HIGH SENSITIVITY 30 pg/mL (<=51)
[2023-10-08 03:23] LABS: PTT,PARTIAL THROMBOPLSTIN TIME 23.6 SECONDS (21.7-31.4)
[2023-10-08 03:26] LABS: ASPARTATE AMNIOTRANSFERASE,AST 23 U/L (15-37); POTASSIUM,K 4.1 mEq/L (3.5-5.1)
[2023-10-08] MEDS ORDERED: Famotidine 20 MG Tab PO ONE (04:34)
[2023-10-08] MEDS ORDERED: Dicyclomine 10 MG Cap PO ONE (04:35)
[2023-10-08] MEDS ORDERED: Famotidine 20 MG Tab ONE (04:57)
[2023-10-08 06:16] LABS: SLIDE REVIEW ABNORMAL SMEAR
== END 2023-10-08 05:00 | disposition home or self-care (01) ==
LOC: JD.ED 02:16
DX: R07.89 Other chest pain (principal); K44.0 Diaphragmatic hernia with obstruction, without gangrene; I10 Essential (primary) hypertension; E78.00 Pure hypercholesterolemia, unspecified; J44.9 Chronic obstructive pulmonary disease, unspecified; K21.00 Gastro-esophageal reflux disease with esophagitis, without bleeding; Z88.8 Allergy status to other drugs, medicaments and biological substances; Z88.5 Allergy status to narcotic agent; Z79.899 Other long term (current) drug therapy
CPT/HCPCS: 36415; 71045; 71250; 74176; 80053; 83735; 83880; 84484; 85025; 85610; 85730; 86140; 93005; 99285; A9270; J7030; 93010; 99283

== ENCOUNTER 2023-12-06 16:07 | Emergency (ER) | payer MEDICARE ==
[2023-12-06] MEDS ORDERED: Nitroglycerin 0.4 MG Tab.SL SL PRN (16:47)
[2023-12-06] MEDS: Sodium Chloride 0.9% 10 ML Syringe FLUSH PRN (17:20)
[2023-12-06 17:29] LABS: BASOPHILS ABSOLUTE AUTO 0.1 K/mm3 (0.0-0.2); BASOPHILS PERCENT AUTO 0.6 % (0.0-1.0); EOSINOPHILS ABSOLUTE AUTO 0.3 K/mm3 (0.0-0.4); HEMATOCRIT 40.1 % (37.0-47.0); HEMOGLOBIN 13.4 gm/dl (12.0-16.0); IMMATURE GRAN ABSOLUTE AUTO 0.04 K/mm3 (0.00-0.05); IMMATURE GRAN PERCENT AUTO 0.3 % (0.0-0.4); LYMPHOCYTES ABSOLUTE AUTO 4.9 K/mm3 (1.0-4.8); MEAN CORPUSCULAR HEMOGLOBIN 29.6 pg (28.0-32.0); MEAN CORPUSCULAR HGB CONC 33.4 g/dl (32.0-36.0); MEAN CORPUSCULAR VOLUME 88.7 fl (83.0-99.0); MONOCYTES ABSOLUTE AUTO 1.3 K/mm3 (0.0-0.8); MONOCYTES PERCENT AUTO 10.3 % (0.0-8.0); NEUTROPHILS PERCENT AUTO 47.8 % (41.0-71.0); PLATELET COUNT,PLT 296 K/mm3 (150-400); RED BLOOD CELL COUNT 4.52 M/mm3 (4.10-5.30); WHITE BLOOD CELL COUNT,WBC 12.58 K/mm3 (3.9-11.3)
[2023-12-06] MEDS: Alum Hydrox/Mag Hydrox/Simeth 30 ML, Lidocaine 2% 15 ML PO ONE (17:31)
[2023-12-06 17:50] LABS: A/G RATIO 1.2 (1-2); ALBUMIN 4.1 g/dl (3.4-5.0); BILIRUBIN TOTAL 0.3 mg/dL (0.2-1.0); BUN/CREATININE RATIO 15.5 (14-18); CALCIUM 9.5 mg/dL (8.5-10.1); CREATININE 1.1 mg/dL (0.55-1.02); EST CRCL DRUG DOSING (CG) 38.71 mL/min; PROTEIN TOTAL,TP 7.4 g/dl (6.4-8.2)
[2023-12-06] MEDS ORDERED: Sodium Chloride 0.9% 100 ML IV SCH (18:15)
[2023-12-06] MEDS: Iopamidol 755 Mg/ML 100 ML Bottle IVPUSH ONE (18:28)
== END 2023-12-06 19:54 | disposition home or self-care (01) ==
LOC: JD.ED 16:07
DX: K21.9 Gastro-esophageal reflux disease without esophagitis (principal); R91.1 Solitary pulmonary nodule; I10 Essential (primary) hypertension; E78.00 Pure hypercholesterolemia, unspecified; J44.89 Other specified chronic obstructive pulmonary disease; Z90.710 Acquired absence of both cervix and uterus; Z87.891 Personal history of nicotine dependence; Z88.5 Allergy status to narcotic agent; Z88.8 Allergy status to other drugs, medicaments and biological substances; Z79.51 Long term (current) use of inhaled steroids; Z79.82 Long term (current) use of aspirin; Z79.899 Other long term (current) drug therapy
CPT/HCPCS: 36415; 71275; 74177; 80053; 84484; 85025; 93005; 99285; A9270; J3490; Q9967

== ENCOUNTER 2024-04-02 13:10 | Inpatient (IN) | payer MEDICARE ==
[2024-04-02 13:50] LABS: BASOPHILS PERCENT AUTO 0.3 % (0.0-1.0); EOSINOPHILS ABSOLUTE AUTO 0.1 K/mm3 (0.0-0.4); EOSINOPHILS PERCENT AUTO 0.8 % (0.0-6.0); HEMOGLOBIN 16.4 gm/dl (12.0-16.0); IMMATURE GRAN ABSOLUTE AUTO 0.03 K/mm3 (0.00-0.05); IMMATURE GRAN PERCENT AUTO 0.2 % (0.0-0.4); LYMPHOCYTES ABSOLUTE AUTO 6.4 K/mm3 (1.0-4.8); LYMPHOCYTES PERCENT AUTO 46.5 % (24.0-44.0); MEAN CORPUSCULAR HEMOGLOBIN 29.5 pg (28.0-32.0); MEAN CORPUSCULAR HGB CONC 34.2 g/dl (32.0-36.0); MEAN CORPUSCULAR VOLUME 86.5 fl (83.0-99.0); MEAN PLATELET VOLUME 9.2 fl (9.4-12.3); MONOCYTES ABSOLUTE AUTO 1.6 K/mm3 (0.0-0.8); MONOCYTES PERCENT AUTO 11.3 % (0.0-8.0); NEUTROPHILS ABSOLUTE AUTO 5.7 K/mm3 (1.8-7.7); NEUTROPHILS PERCENT AUTO 40.9 % (41.0-71.0); PLATELET COUNT,PLT 370 K/mm3 (150-400); RED BLOOD CELL COUNT 5.55 M/mm3 (4.10-5.30); WHITE BLOOD CELL COUNT,WBC 13.82 K/mm3 (3.9-11.3)
[2024-04-02 14:13] LABS: A/G RATIO 0.9 (1-2); ALBUMIN 3.8 g/dl (3.4-5.0); ANION GAP 18.9 (5-15); BILIRUBIN TOTAL 0.6 mg/dL (0.2-1.0); C-REACTIVE PROTEIN 10.33 mg/dL (<0.30); CALCIUM 9.9 mg/dL (8.5-10.1); CREATININE 1.5 mg/dL (0.55-1.02); EST CRCL DRUG DOSING (CG) 29.69 mL/min; POTASSIUM,K 3.9 mEq/L (3.5-5.1)
[2024-04-02] MEDS: Ondansetron 4 MG/2 ML SDV IVPUSH ONE (14:21)
[2024-04-02] MEDS: Sodium Chloride 0.9% 1,000 ML IV STA (14:23)
[2024-04-02 14:24] LABS: SLIDE REVIEW ABNORMAL SMEAR
[2024-04-02] MEDS: Sodium Chloride 0.9% 10 ML Syringe FLUSH PRN (14:32)
[2024-04-02 14:33] LABS: CORONAVIRUS COVID-19 NAA NEGATIVE (NEGATIVE); INFLUENZA A NAA NEGATIVE (NEGATIVE); RESPIRATORY SYNCYTIAL VIR NAA NEGATIVE (NEGATIVE)
[2024-04-02] MEDS: HYDROmorphone 0.5 MG/0.5 ML Syringe IVPUSH ONE (14:35)
[2024-04-02] MEDS: Iopamidol 612 MG/ML 100 ML Bottle IVPUSH ONE (15:00)
[2024-04-02] MEDS: diphenhydrAMINE 50 MG/ML SDV IVPUSH ONE (16:40)
[2024-04-02] MEDS: Benzocaine 20% Topical Spray UD MUCMEM ONE (16:47)
[2024-04-02] MEDS: Lactated Ringers 1,000 ML IV SCH (19:07)
[2024-04-02] MEDS: Lactated Ringers 1,000 ML IV ONE (19:28)
[2024-04-02] MEDS: HYDROmorphone 0.5 MG/0.5 ML Syringe IVPUSH PRN (19:52)
[2024-04-02] MEDS: Formoterol/Mometasone 200-5 MCG 8.8 GM Inhaler INH SCH (21:03)
[2024-04-02] MEDS: Gabapentin 100 MG Cap PO SCH (21:26)
[2024-04-02] MEDS: Topiramate 25 MG Tab PO SCH (21:26)
[2024-04-02] MEDS: Montelukast 10 MG Tab PO SCH (21:27)
[2024-04-02] MEDS: Rosuvastatin 10 MG Tab PO SCH (21:27)
[2024-04-03 00:25] LABS: APPEARANCE,URINE CLEAR (Clear); BILIRUBIN,URINE 1+ (Negative); COLOR,URINE YELLOW (Yellow); GLUCOSE,URINE NEGATIVE (Negative); KETONES,URINE 2+ (Negative); LEUKOCYTE ESTERASE,URINE NEGATIVE (Negative); NITRITE,URINE NEGATIVE (Negative); OCCULT BLOOD,URINE TRACE-LYSED (Negative); PROTEIN,URINE TRACE (Negative); UROBILINOGEN,URINE 0.2 (0.2-1.0)
[2024-04-03 00:33] LABS: BACTERIA,URINE FEW /hpf (FEW); MUCUS,URINE FEW /hpf (FEW); RBC,URINE 0-5 /hpf (0-5); SQUAMOUS EPITHELIAL CELLS,UR 0-5 /hpf (0-5); WBC,URINE 0-5 /hpf (0-5)
[2024-04-03] MEDS: Ondansetron 4 MG Tab.DIS PO PRN (02:55)
[2024-04-03] MEDS: diphenhydrAMINE 50 MG/ML SDV IVPUSH PRN (03:17)
[2024-04-03 05:56] LABS: BASOPHILS PERCENT AUTO 0.4 % (0.0-1.0); EOSINOPHILS ABSOLUTE AUTO 0.3 K/mm3 (0.0-0.4); EOSINOPHILS PERCENT AUTO 3.4 % (0.0-6.0); HEMATOCRIT 36.2 % (37.0-47.0); IMMATURE GRAN ABSOLUTE AUTO 0.02 K/mm3 (0.00-0.05); IMMATURE GRAN PERCENT AUTO 0.2 % (0.0-0.4); MEAN CORPUSCULAR HEMOGLOBIN 29.7 pg (28.0-32.0); MEAN CORPUSCULAR HGB CONC 33.7 g/dl (32.0-36.0); MEAN CORPUSCULAR VOLUME 88.1 fl (83.0-99.0); MEAN PLATELET VOLUME 9.5 fl (9.4-12.3); MONOCYTES PERCENT AUTO 12.6 % (0.0-8.0); NEUTROPHILS ABSOLUTE AUTO 2.9 K/mm3 (1.8-7.7); NEUTROPHILS PERCENT AUTO 35.4 % (41.0-71.0); RED BLOOD CELL COUNT 4.11 M/mm3 (4.10-5.30); WHITE BLOOD CELL COUNT,WBC 8.27 K/mm3 (3.9-11.3)
[2024-04-03 06:06] LABS: HEMOGLOBIN 12.2 gm/dl (12.0-16.0); PLATELET COUNT,PLT 268 K/mm3 (150-400)
[2024-04-03 06:14] LABS: ANION GAP 13.4 (5-15); BUN/CREATININE RATIO 27.8 (14-18); CREATININE 0.9 mg/dL (0.55-1.02); EST CRCL DRUG DOSING (CG) 49.49 mL/min; MAGNESIUM 1.6 mg/dL (1.8-2.4); PHOSPHORUS 2.4 mg/dL (2.6-4.7); POTASSIUM,K 3.4 mEq/L (3.5-5.1)
[2024-04-03 06:37] LABS: CALCIUM 8.3 mg/dL (8.5-10.1)
[2024-04-03] MEDS ORDERED: Calcium Chloride 10% 1 GM/10 ML Syringe IVPUSH ONE (07:34)
[2024-04-03] MEDS ORDERED: Magnesium Sulfate (4.06 MEQ/ML) 5 GM/10 ML SDV IV ONE (07:45)
[2024-04-03] MEDS: Tiotropium Bromide 4 GM Inhalation Spray (2.5mcg/1 dose; 10 doses) INH SCH (08:21)
[2024-04-03] MEDS: Enoxaparin 40 MG/0.4 ML Syringe SUBCUT SCH (08:24)
[2024-04-03] MEDS: Metoprolol Succinate 25 MG Tab.ER PO SCH (08:24)
[2024-04-03] MEDS: Diltiazem 120 MG Cap.CD PO SCH (08:26)
[2024-04-03] MEDS ORDERED: Venlafaxine 37.5 MG Cap.ER PO SCH (09:00)
[2024-04-03] MEDS ORDERED: Enoxaparin 30 MG/0.3 ML Syringe SUBCUT SCH (09:00)
[2024-04-03] MEDS: Calcium Gluconate 1 GM in Sodium Chloride 0.9% 100 ML IV ONE (09:55)
[2024-04-03] MEDS: Potassium Phosphates 30 MMOLE in Sodium Chloride 0.9% 500 ML IV ONE (11:25)
[2024-04-03] MEDS: Ketorolac 15 MG/ML SDV IVPUSH SCH (11:40)
[2024-04-03] MEDS: Diatrizoate Meglumine/Diatrizoate Sodium 37% 120 ML Bottle PO ONE (16:14)
[2024-04-03] MEDS: Iopamidol 755 Mg/ML 100 ML Bottle IVPUSH ONE (16:14)
[2024-04-03] MEDS: Sodium Chloride 0.9% 10 ML Syringe FLUSH ONE (16:14)
[2024-04-03] MEDS: Calcium Carbonate 500 MG Tab.Chew PO PRN (21:58)
== END 2024-04-04 13:52 | disposition home or self-care (01) | DRG 390 ==
LOC: JD.ED 13:10 → JD.MS 16:01
PROVIDERS: ADMIT Surgery; ATTEND Surgery
PROC: 0D9670Z Drainage of Stomach with Drainage Device, Via Natural or Artificial Opening (ICD-10-PCS; principal; 2024-04-02)
DX: K56.609 Unspecified intestinal obstruction, unspecified as to partial versus complete obstruction (principal); R11.2 Nausea with vomiting, unspecified; E86.0 Dehydration; E78.00 Pure hypercholesterolemia, unspecified; J45.909 Unspecified asthma, uncomplicated; I10 Essential (primary) hypertension; E78.5 Hyperlipidemia, unspecified; K21.9 Gastro-esophageal reflux disease without esophagitis; G43.909 Migraine, unspecified, not intractable, without status migrainosus; M19.90 Unspecified osteoarthritis, unspecified site; E66.9 Obesity, unspecified; J44.9 Chronic obstructive pulmonary disease, unspecified; D64.9 Anemia, unspecified; F41.9 Anxiety disorder, unspecified; F32.A Depression, unspecified; J43.9 Emphysema, unspecified; I25.10 Atherosclerotic heart disease of native coronary artery without angina pectoris; Z88.5 Allergy status to narcotic agent; Z88.8 Allergy status to other drugs, medicaments and biological substances; Z79.82 Long term (current) use of aspirin; Z98.49 Cataract extraction status, unspecified eye; Z90.49 Acquired absence of other specified parts of digestive tract; Z90.710 Acquired absence of both cervix and uterus; Z87.442 Personal history of urinary calculi; Z79.899 Other long term (current) drug therapy; Z87.891 Personal history of nicotine dependence; Z98.890 Other specified postprocedural states; Z68.34 Body mass index [BMI] 34.0-34.9, adult
CPT/HCPCS: 0241U; 36415; 71045; 74177; 74178; 80048; 80053; 81001; 83605; 83630; 83690; 83735; 84100; 85025; 86140; 87040; 87045; 87046; 87899; 94640; 94760; 94761; 43752; 96361; 96374; 96375; 99285; 99285-25; A9270-GY; J0612; J1170; J1200; J1650; J1885; J2405; J3475; J3490; J7030; J7040; J7120; Q9963; Q9967